=== PATIENT | male | born 1950 | race Caucasian/White ===

== ENCOUNTER 2024-09-02 14:07 | Inpatient (IN) | payer MEDICARE, OTHER, SELFPAY ==
[2024-08-31 16:45] VITALS: BP 119/61
--- NOTE | 2024-08-31 16:55 | ED.GENMED ---
ED Provider Triage
<Sylvia Vanegas PA-C - Last Filed: 08/31/24 16:56>
-
Patient seen by provider in Triage?: Seen in Triage
Attestation: A medical screening examination has been initiated by a qualified medical provider. Based on the assessment performed at this time, it has been determined that an emergent medical condition may exist and the patient has been informed
that further medical evaluation and possible additional diagnostic testing may be needed.
HPI: 74yoM here for weakness. Had a fall last night but unable to get off the floor. Slept on floor for 10 hours. Second fall today. EMS called twice today. Hx of Parkinson's.
GENERAL: Alert , in no apparent distress
EYE: No visual abnormalities.
NECK: Trachea midline
ENT: No visible abnormalities.
LUNGS: No acute respiratory distress
NEUROLOGICAL: Alert and oriented
SKIN: Skin intact. No visible changes.
MUSCULOSKELETAL: Moving extremities normally
PSYCH: Normal and appropriate interaction.
This is a medical evaluation conducted in person to initiate diagnostic evaluation and provide initial therapeutics. Please see further documentation by the treating clinician.
CBC, CMP, CK, and UA ordered.
History of Present Illness
<Sylvia Vanegas PA-C - Last Filed: 08/31/24 16:56>
General
Chief Complaint: Weakness
Time Seen by Provider: 09/01/24 00:53
<Ren Enrique MD, Resident - Last Filed: 09/01/24 05:35>
General
Source: patient and spouse
Nursing documentation reviewed up to this point in time: agreed with
Travel History
Have you traveled to any high risk areas for coronavirus over the past 14 days?: No
Have you had any contact with someone who has COVID-19?: No
History of Present Illness
History of Present Illness:
74-year-old male with PMH of Parkinson's disease, anxiety and depression who presented to the emergency department via EMS with 1 week history of weakness which has worsened over the past 24 hours. Patient was seen with spouse at bedside who
provided supplemental information. Patient's spouse reports that patient slid out of his bed last night and had to sleep on a carpeted floor because he could not get up to go back to his bed even with the help. This morning, patient called the
police to help him back to bed but slid back out again prior to being brought to the emergency department. He reports compliance with his carbidopa-levodopa, however continues to shake vigorously. Patient denies recent extraordinary physical
exertions, statin use, heatstroke. He also denies chest pain, shortness of breath, palpitations, fever or chills. Denies head trauma, denies history of seizures. Admits that he has not been drinking enough water due to fear of urinating, having
UTI.
Past History
<Ren Enrique MD, Resident - Last Filed: 09/01/24 05:35>
Past History
ED Past Medical History: Psychiatric (Parkinson's, anxiety, depression)
Social History
Tobacco: Non-smoker
Alcohol: None
Drug: None
Personal:
Living: with family
Review of Systems
<Ren Enrique MD, Resident - Last Filed: 09/01/24 05:35>
Review of Systems
All Other Systems: ROS reviewed and negative except as documented in HPI and ROS
Phy Exam
<Ren Enrique MD, Resident - Last Filed: 09/01/24 05:35>
Physical Exam
Physical Exam:
GENERAL: Alert and oriented x 3, NAD. Afebrile
HEAD: NC/AT
OROPHARYNX: no exudate or ulcers.
EYE: pupils equal and reactive extraocular muscles
NECK: Supple, no significant adenopathy.
CARDIAC: Regular rate and rhythm, systolic ejection murmur
LUNGS: Normal breath sounds,normal-no rhonchi. Not bronchospastic.
ABDOMEN: Soft, NT, ND, no peritoneal signs.
NEUROLOGICAL: Alert and oriented x 3. Severe intention tremors on right hand.
SKIN: Warm and dry, no rash or lesion, no discoloration, skin intact.
MUSCULOSKELETAL: Full range of motion of extremities.
LYMPHATIC:No lymph nodes on his neck or supraclavicular area.
PSYCH: Normal and appropriate interaction.
Neurological Exam
Neurological Exam: alert, oriented x3 and speech normal
Psychiatric Exam
Psychiatric Exam: anxious
Course
<Sylvia Vanegas PA-C - Last Filed: 08/31/24 16:56>
Orders/Labs/Results
Orders:
Orders
08/31/24 17:00
Complete Blood Count/With Diff Urgent
Comprehensive Metabolic Panel Urgent
Total CK [Creatine Phosphokinase] Urgent
08/31/24 17:33
Urinalysis Reflex To Culture Urgent
Date Specimen was Collected: 08/31/24
Time Specimen was Collected: 16:50
Urine Microscopic Reflex Cult Urgent
09/01/24 01:45
0.9% Sodium Chloride 1000 ml [Nss] 1,000 ml IV BOLUS
09/01/24 02:12
CT Head W/o Iv Contrast Urgent
Comment:
Reason For Exam: Frequent falls, weakness
09/01/24 02:22
COVID-19 Antigen Stat
Source: Nasal Swab
Influenza A+B Rapid Molecular Urgent
MATTHIEU Source: Nasal Swab
Specimen Description:
09/01/24 02:48
Carbidopa/Levodopa Cr [Sinemet Cr 25-100 (Extended Release)] 1 tablet PO NOW STA
09/01/24 04:23
ECG [Electrocardiogram (*1)] Stat
Reason for Study: Fatigue / Weakness
09/01/24 04:30
Admit/Transfer Patient As Directed
Co-Sign Provider:
Level of Care: Observation services
Assign to:: Medical/Surgical
Physician / Group: hospitalist
Diagnosis: rhabdomyolysis
PRN Pain Medication Management As Directed
May give lesser potent ordered pain med per pt: Yes
preference::
Protocol:: Medication orders for pain may be administered in a
manner that supports deferring to patient preference
when the pt is:
- Requesting an ordered lesser potent pain medication.
Least to most potent pain medications are defined
as: acetaminophen < NSAID < tramadol < opioids
(morphine, oxycodone, hydromorphone).
- Requesting a lesser dose of the same medication IF
ORDERED.
- Requesting a less intrusive route of administration
if both routes are prescribed by the provider (PO <
IV).
09/01/24 04:31
Code Status As Directed
Resuscitation Status: Full Code
09/01/24 05:45
0.9% Sodium Chloride 1000 ml [Nss] 1,000 ml IV 100 mls/hr
Acetaminophen [Tylenol] 650 mg PO Q4HPRN PRN
Bisacodyl [Dulcolax] 10 mg RECTAL [id number] PRN
Docusate W/Senna [Senokot-S] 1 tablet PO BIDPRN PRN
Ondansetron Injectable [Zofran] 4 mg IV Q6HPRN PRN
Polyethylene Glycol Powder [Miralax] 17 grams PO DAILYPRN PRN
09/01/24 05:45
Activity As Directed
Activity Level: With Assistance
Orthostatic Vital Signs As Directed
Orthostatic VS Frequency: Daily
Vital Signs As Directed
Frequency: Per unit guidelines
Pt Eval And Treat Routine
Activity Level: With Assistance
DX Deep Vein Thrombosis Video Routine
09/01/24 Breakfast
Regular
At Your Request: Limited Participation
09/01/24 06:35
Basic Metabolic Panel IN AM
Creatine Phosphokinase IN AM
Magnesium IN AM
TSH IN AM
09/01/24 08:00
Carbidopa/Levodopa [Sinemet 25-100] 2 tablet PO TID
Hydrochlorothiazide [Oretic] 12.5 mg PO DAILY
Sertraline HCl [Zoloft] 25 mg PO DAILY
09/01/24 18:00
Enoxaparin Sodium [Lovenox] 40 mg SC QPM
09/01/24 22:00
Atorvastatin [Lipitor] 10 mg PO HS
Carbidopa/Levodopa Cr [Sinemet Cr 25-100 (Extended Release)] 1 tablet PO HS
Donepezil HCl [Aricept] 10 mg PO HS
Abnormal Lab Results
08/31/24 08/31/24
17:00 17:33
RBC 4.32 L 10^6/uL
(4.70-6.10)
MCH 31.7 H pg
(27.0-31.0)
MPV 11.0 H fL
(7.4-10.4)
Absolute Lymphs (auto) 0.8 L 10^3/uL
(1.2-3.4)
Absolute Monos (auto) 1.0 H 10^3/uL
(0.1-0.6)
Neutrophils % 76.8 H %
(42.2-75.2)
Lymphocytes % 9.9 L %
(20.5-51.1)
Monocytes % 12.0 H %
(1.7-9.3)
BUN 25 H mg/dl
(9-20)
Total Bilirubin 1.7 H mg/dl
(0.2-1.3)
AST 80 H U/L
(17-59)
Creatine Kinase 3440 H U/L
(55-170)
Urine Ketones 1+ A
(Negative)
Urine Bacteria (Reflex) Few A
(Negative)
Urine Albumin (Reflex) 1+ A
(Neg - Trace)
08/31/24 17:00
08/31/24 17:00
Vital Signs
Initial and Last Documented VS:
Initial Vital Signs
Temp Pulse Resp BP Pulse Ox
97.9 F 82 20 119/61 97
08/31/24 16:45 08/31/24 16:45 08/31/24 16:45 08/31/24 16:45 08/31/24 16:45
Last Documented Vital Signs
Temp Pulse Resp BP Pulse Ox
97.6 F 195 21 117/46 97
09/01/24 00:46 09/01/24 06:15 09/01/24 06:15 09/01/24 06:00 09/01/24 06:00
<Ren Dank Enrique MD, Resident - Last Filed: 09/01/24 05:35>
Orders/Labs/Results
Orders:
Orders
08/31/24 17:00
Complete Blood Count/With Diff Urgent
Comprehensive Metabolic Panel Urgent
Total CK [Creatine Phosphokinase] Urgent
08/31/24 17:33
Urinalysis Reflex To Culture Urgent
Date Specimen was Collected: 08/31/24
Time Specimen was Collected: 16:50
Urine Microscopic Reflex Cult Urgent
09/01/24 01:45
0.9% Sodium Chloride 1000 ml [Nss] 1,000 ml IV BOLUS
09/01/24 02:12
CT Head W/o Iv Contrast Urgent
Comment:
Reason For Exam: Frequent falls, weakness
09/01/24 02:22
COVID-19 Antigen Stat
Source: Nasal Swab
Influenza A+B Rapid Molecular Urgent
MATTHIEU Source: Nasal Swab
Specimen Description:
09/01/24 02:48
Carbidopa/Levodopa Cr [Sinemet Cr 25-100 (Extended Release)] 1 tablet PO NOW STA
09/01/24 04:23
ECG [Electrocardiogram (*1)] Stat
Reason for Study: Fatigue / Weakness
09/01/24 04:30
Admit/Transfer Patient As Directed
Co-Sign Provider:
Level of Care: Observation services
Assign to:: Medical/Surgical
Physician / Group: hospitalist
Diagnosis: rhabdomyolysis
PRN Pain Medication Management As Directed
May give lesser potent ordered pain med per pt: Yes
preference::
Protocol:: Medication orders for pain may be administered in a
manner that supports deferring to patient preference
when the pt is:
- Requesting an ordered lesser potent pain medication.
Least to most potent pain medications are defined
as: acetaminophen < NSAID < tramadol < opioids
(morphine, oxycodone, hydromorphone).
- Requesting a lesser dose of the same medication IF
ORDERED.
- Requesting a less intrusive route of administration
if both routes are prescribed by the provider (PO <
IV).
09/01/24 04:31
Code Status As Directed
Resuscitation Status: Full Code
09/01/24 05:45
0.9% Sodium Chloride 1000 ml [Nss] 1,000 ml IV 100 mls/hr
Acetaminophen [Tylenol] 650 mg PO Q4HPRN PRN
Bisacodyl [Dulcolax] 10 mg RECTAL [id number] PRN
Docusate W/Senna [Senokot-S] 1 tablet PO BIDPRN PRN
Ondansetron Injectable [Zofran] 4 mg IV Q6HPRN PRN
Polyethylene Glycol Powder [Miralax] 17 grams PO DAILYPRN PRN
09/01/24 05:45
Activity As Directed
Activity Level: With Assistance
Orthostatic Vital Signs As Directed
Orthostatic VS Frequency: Daily
Vital Signs As Directed
Frequency: Per unit guidelines
Pt Eval And Treat Routine
Activity Level: With Assistance
DX Deep Vein Thrombosis Video Routine
09/01/24 Breakfast
Regular
At Your Request: Limited Participation
09/01/24 06:35
Basic Metabolic Panel IN AM
Creatine Phosphokinase IN AM
Magnesium IN AM
TSH IN AM
09/01/24 08:00
Carbidopa/Levodopa [Sinemet 25-100] 2 tablet PO TID
Hydrochlorothiazide [Oretic] 12.5 mg PO DAILY
Sertraline HCl [Zoloft] 25 mg PO DAILY
09/01/24 18:00
Enoxaparin Sodium [Lovenox] 40 mg SC QPM
09/01/24 22:00
Atorvastatin [Lipitor] 10 mg PO HS
Carbidopa/Levodopa Cr [Sinemet Cr 25-100 (Extended Release)] 1 tablet PO HS
Donepezil HCl [Aricept] 10 mg PO HS
Abnormal Lab Results
08/31/24 08/31/24
17:00 17:33
RBC 4.32 L 10^6/uL
(4.70-6.10)
MCH 31.7 H pg
(27.0-31.0)
MPV 11.0 H fL
(7.4-10.4)
Absolute Lymphs (auto) 0.8 L 10^3/uL
(1.2-3.4)
Absolute Monos (auto) 1.0 H 10^3/uL
(0.1-0.6)
Neutrophils % 76.8 H %
(42.2-75.2)
Lymphocytes % 9.9 L %
(20.5-51.1)
Monocytes % 12.0 H %
(1.7-9.3)
BUN 25 H mg/dl
(9-20)
Total Bilirubin 1.7 H mg/dl
(0.2-1.3)
AST 80 H U/L
(17-59)
Creatine Kinase 3440 H U/L
(55-170)
Urine Ketones 1+ A
(Negative)
Urine Bacteria (Reflex) Few A
(Negative)
Urine Albumin (Reflex) 1+ A
(Neg - Trace)
08/31/24 17:00
08/31/24 17:00
Vital Signs
Initial and Last Documented VS:
Initial Vital Signs
Temp Pulse Resp BP Pulse Ox
97.9 F 82 20 119/61 97
08/31/24 16:45 08/31/24 16:45 08/31/24 16:45 08/31/24 16:45 08/31/24 16:45
Last Documented Vital Signs
Temp Pulse Resp BP Pulse Ox
97.6 F 195 21 117/46 97
09/01/24 00:46 09/01/24 06:15 09/01/24 06:15 09/01/24 06:00 09/01/24 06:00
Coltlt;Myrtle Jolly, DO - Last Filed: 09/01/24 08:25>
Orders/Labs/Results
Orders:
Orders
08/31/24 17:00
Complete Blood Count/With Diff Urgent
Comprehensive Metabolic Panel Urgent
Total CK [Creatine Phosphokinase] Urgent
08/31/24 17:33
Urinalysis Reflex To Culture Urgent
Date Specimen was Collected: 08/31/24
Time Specimen was Collected: 16:50
Urine Microscopic Reflex Cult Urgent
09/01/24 01:45
0.9% Sodium Chloride 1000 ml [Nss] 1,000 ml IV BOLUS
09/01/24 02:12
CT Head W/o Iv Contrast Urgent
Comment:
Reason For Exam: Frequent falls, weakness
09/01/24 02:22
COVID-19 Antigen Stat
Source: Nasal Swab
Influenza A+B Rapid Molecular Urgent
MATTHIEU Source: Nasal Swab
Specimen Description:
09/01/24 02:48
Carbidopa/Levodopa Cr [Sinemet Cr 25-100 (Extended Release)] 1 tablet PO NOW STA
09/01/24 04:23
ECG [Electrocardiogram (*1)] Stat
Reason for Study: Fatigue / Weakness
09/01/24 04:30
Admit/Transfer Patient As Directed
Co-Sign Provider:
Level of Care: Observation services
Assign to:: Medical/Surgical
Physician / Group: hospitalist
Diagnosis: rhabdomyolysis
PRN Pain Medication Management As Directed
May give lesser potent ordered pain med per pt: Yes
preference::
Protocol:: Medication orders for pain may be administered in a
manner that supports deferring to patient preference
when the pt is:
- Requesting an ordered lesser potent pain medication.
Least to most potent pain medications are defined
as: acetaminophen < NSAID < tramadol < opioids
(morphine, oxycodone, hydromorphone).
- Requesting a lesser dose of the same medication IF
ORDERED.
- Requesting a less intrusive route of administration
if both routes are prescribed by the provider (PO <
IV).
09/01/24 04:31
Code Status As Directed
Resuscitation Status: Full Code
09/01/24 05:45
0.9% Sodium Chloride 1000 ml [Nss] 1,000 ml IV 100 mls/hr
Acetaminophen [Tylenol] 650 mg PO Q4HPRN PRN
Bisacodyl [Dulcolax] 10 mg RECTAL [id number] PRN
Docusate W/Senna [Senokot-S] 1 tablet PO BIDPRN PRN
Ondansetron Injectable [Zofran] 4 mg IV Q6HPRN PRN
Polyethylene Glycol Powder [Miralax] 17 grams PO DAILYPRN PRN
09/01/24 05:45
Activity As Directed
Activity Level: With Assistance
Orthostatic Vital Signs As Directed
Orthostatic VS Frequency: Daily
Vital Signs As Directed
Frequency: Per unit guidelines
Pt Eval And Treat Routine
Activity Level: With Assistance
DX Deep Vein Thrombosis Video Routine
09/01/24 Breakfast
Regular
At Your Request: Limited Participation
09/01/24 06:35
Basic Metabolic Panel IN AM
Creatine Phosphokinase IN AM
Magnesium IN AM
TSH IN AM
09/01/24 08:00
Carbidopa/Levodopa [Sinemet 25-100] 2 tablet PO TID
Hydrochlorothiazide [Oretic] 12.5 mg PO DAILY
Sertraline HCl [Zoloft] 25 mg PO DAILY
09/01/24 18:00
Enoxaparin Sodium [Lovenox] 40 mg SC QPM
09/01/24 22:00
Atorvastatin [Lipitor] 10 mg PO HS
Carbidopa/Levodopa Cr [Sinemet Cr 25-100 (Extended Release)] 1 tablet PO HS
Donepezil HCl [Aricept] 10 mg PO HS
Abnormal Lab Results
08/31/24 08/31/24
17:00 17:33
RBC 4.32 L 10^6/uL
(4.70-6.10)
MCH 31.7 H pg
(27.0-31.0)
MPV 11.0 H fL
(7.4-10.4)
Absolute Lymphs (auto) 0.8 L 10^3/uL
(1.2-3.4)
Absolute Monos (auto) 1.0 H 10^3/uL
(0.1-0.6)
Neutrophils % 76.8 H %
(42.2-75.2)
Lymphocytes % 9.9 L %
(20.5-51.1)
Monocytes % 12.0 H %
(1.7-9.3)
BUN 25 H mg/dl
(9-20)
Total Bilirubin 1.7 H mg/dl
(0.2-1.3)
AST 80 H U/L
(17-59)
Creatine Kinase 3440 H U/L
(55-170)
Urine Ketones 1+ A
(Negative)
Urine Bacteria (Reflex) Few A
(Negative)
Urine Albumin (Reflex) 1+ A
(Neg - Trace)
08/31/24 17:00
08/31/24 17:00
Vital Signs
Initial and Last Documented VS:
Initial Vital Signs
Temp Pulse Resp BP Pulse Ox
97.9 F 82 20 119/61 97
08/31/24 16:45 08/31/24 16:45 08/31/24 16:45 08/31/24 16:45 08/31/24 16:45
Last Documented Vital Signs
Temp Pulse Resp BP Pulse Ox
97.6 F 195 21 117/46 97
09/01/24 00:46 09/01/24 06:15 09/01/24 06:15 09/01/24 06:00 09/01/24 06:00
<Renchristiano Enrique MD, Resident - Last Filed: 09/01/24 05:35>
MDM/Problems Addressed
MDM/Problems Addressed:
74-year-old male with PMH of Parkinson's disease, anxiety, depression who presented to the emergency department with 1 week history of progressive weakness and slipping out of bed this morning. While in the ED, he is hemodynamically stable. Labs
was remarkable for creatinine kinase 3440, BUN 25 creatinine 0.7. He denies head trauma, cold, cough, nasal congestion. Differential diagnoses include rhabdomyolysis, subacute stroke, worsening Parkinson's disease. Given his dehydration, will
give a bolus of IV fluid and get a noncontrast CT to evaluate for stroke. Patient will most likely be admitted for frequent falls, and rhabdomyolysis.
Chronic conditions affecting care: Neurological disorder
<Ren Enrique MD, Resident - Last Filed: 09/01/24 05:35>
*EKG
Interpreted by ED Provider?: Yes
EKG Intrepretation Date: 09/01/24
EKG Intrepretation Time: 04:23
Interpretation: abnormal
Comparison EKG: no comparison EKG present
Heart Rate: 63
Rate: normal
Rhythm: sinus
[place]: left axis deviation
Interval: first degree heart block
QRS Pattern: normal QRS
Ischemia: no ischemia
*Critical Care Note
Total Time (30-74mins, 75-104mins- exclusive of procedures): Not Applicable
<Ren Enrique MD, Resident - Last Filed: 09/01/24 05:35>
Update Note
Update Note:
Noncontrast CT head reports no acute intracranial abnormalities. However given recent falls, rhabdomyolysis, patient will be admitted to hospitalist service.
ED Attending Note
<Sylvia Vanegas PA-C - Last Filed: 08/31/24 16:56>
-
Portions of this chart may have been created with voice recognition software.� Occasional wrong word or��sound alike� substitutions may have occurred due to the inherent limitations of voice recognition software.
<Myrtle Jolly DO - Last Filed: 09/01/24 08:25>
ED Attending Note
Patient seen and examined by attending physician: Yes
I performed a history and physical exam of patient and discussed management with resident, I reviewed resident's note and agree with documented findings and plan of care.: Yes
ED Attending Note:
This is a 74-year-old gentleman who has history of Parkinson's disease, hyperlipidemia, depression who resides at home with his .
He had been attending twice weekly physical therapy for quite some time for maintenance but admits to progressive weakness over the past week, inability to attend physical therapy visits this week and he has suffered 2 falls/falling out of bed over
24 hours ago and proceeded to lie on the floor throughout the night as was unable to help him up to stand. 911 called yesterday morning for lift assist and he was placed back in bed but then slid out of bed again tonight requiring EMS
assistance again.
He denies fever nor chills, no coughing or shortness of breath.
Somewhat poor appetite over the past week but no nausea no vomiting, no diarrhea or constipation. He denies pain.
No history of similar episodes in the past.
No recent change in medications but he admits that he has not taken his medicines throughout the day today.
74-year-old gentleman appears his stated age, bright and alert, pleasant, mildly intermittently anxious otherwise in no acute distress. is accompanying.
HEENT: The head is normocephalic, atraumatic.
Neuro: Moderate cogwheel rigidity of extremities with intermittent resting tremor of right upper extremity.
Concern for subacute stroke, electrolyte abnormality, dehydration, exacerbation of Parkinson's disease with acute exacerbation of ambulatory dysfunction.
Labs remarkable for elevated CPK of 3400 consistent with rhabdomyolysis. I suspect related to patient lying for extended hours on the floor.
Due to recurrent falls, acute rhabdomyolysis, progressive weakness he will require acute hospitalization, IV fluid resuscitation.
Will check CT of the head.
Discharge Plan
Departure
Patient Disposition: Admit
Date of Disposition: 09/01/24
Time of Disposition: 03:03
Admit to: Med/Surg
Admit to doctor: Josie Harris
Presentation/result/management discussed w/ accepting MD/DO: Hospitalist
Patient with high blood pressure during this ER visit?: Yes
Condition: Fair
Covid-19: Not Applicable
Discharge Problem:
Weakness generalized, Rhabdomyolysis, JEROD (acute kidney injury), Falls frequently
Interventions
Interventions:
*Risk Screen - Suicide Last Done: 08/31/24 16:45
*General Assessment Last Done: 09/01/24 00:47
*Neglect/Abuse Screening Last Done: 08/31/24 16:45
ED- Fall Risk Assessment Last Done: 09/01/24 00:47
*ED COVID-19 Vaccine History Last Done: 09/01/24 00:46
ED- Cardiac Assessment Last Done: 09/01/24 00:47
ED- Neurological Assessment Last Done: 09/01/24 00:47
ED- Pulmonary Assessment Last Done: 09/01/24 00:47
[2024-08-31 17:14] LABS: % Basophils 0.4 % (0-2); % Eosinophils 0.5 % (0-6); % Immature Granulocytes 0.4 % (0-0.5); % Lymphocytes 9.9 % (20.5-51.1); % Neutrophils 76.8 % (42.2-75.2); Absolute Lymphocytes 0.8 10^3/uL (1.2-3.4); Absolute Neutrophils 6.2 10^3/uL (1.4-6.5); Hematocrit 39.9 % (39.0-52.0); Hemoglobin 13.7 g/dL (13.0-18.0); Mean Corp Hgb Conc. 34.3 g/dL (33.0-37.0); Mean Corpuscular Hgb 31.7 pg (27.0-31.0); Mean Corpuscular Volume 92.4 fL (80.0-94.0); Nucleated Red Blood Cells % 0 % (-); Platelet Count 183 10^3/uL (130-400); Red Blood Cell Count 4.32 10^6/uL (4.70-6.10); White Blood Cell Count 8.1 10^3/uL (4.8-10.8)
[2024-08-31 17:28] LABS: ALT (SGPT) < 10 U/L (0-50); AST (SGOT) 80 U/L (17-59); Albumin 4.6 g/dl (3.5-5.0); Alkaline Phosphatase 77 U/L (38-126); Blood Urea Nitrogen 25 mg/dl (9-20); Calcium 9.3 mg/dl (8.4-10.2); Carbon Dioxide 25 mmol/L (22-30); Chloride 103 mmol/L (98-107); Glucose 95 mg/dl (70-99); Sodium 137 mmol/L (135-145); Total Bilirubin 1.7 mg/dl (0.2-1.3); Total Protein 7.5 g/dl (6.3-8.2); eGFR > 60.00
[2024-08-31 17:35] LABS: Creatine Phosphokinase 3440 U/L (55-170)
[2024-08-31 17:44] LABS: Urine Albumin 1+ (Neg - Trace); Urine Bilirubin Negative (Negative); Urine Character Clear (Clear); Urine Color Yellow; Urine Glucose Negative (Negative); Urine Ketone 1+ (Negative); Urine Leukocyte Negative (Negative); Urine Nitrite Negative (Negative); Urine Occult Blood Negative (Negative); Urine Urobilinogen Negative (Neg - 1+)
[2024-08-31 18:18] LABS: Urine Mucus Moderate; Urine Squamous Cell 0-2 /LPF (Few)
[2024-08-31 18:19] LABS: Urine Bacteria Few (Negative); Urine Red Blood Cell 0-2 /HPF (0-2); Urine White Cell 0-2 /HPF (0-5)
[2024-09-01] VITALS (16 sets, daily range): BP systolic 100–171; BP diastolic 44–90; PULSE 69; BMI 29.4; BMI 26.6
[2024-09-01] MEDS: NSS 1000 IV ×3 (02:07→17:12)
[2024-09-01 02:47] LABS: COVID-19 Antigen Negative (Negative)
[2024-09-01] MEDS: SINEMET CR 25-100 (EXTENDED RELEASE) 1 TABLET PO ×2 (02:59→21:01)
--- NOTE | 2024-09-01 04:20 | HPS.HSE ---
Family Physician
-
Family Physician: Misha Riddle
Chief Complaint
-
Weakness
History of Present Illness
This is a 74-year-old with past medical history significant for oral Parkinson disease, hypertension, hyperlipidemia and some dementia who presents to the emergency department after slipping off of his bed twice in the last 24 hours.
At the time of my interview patient was sleeping without arousable and able to give some history. Stated that he was trying to get out of the bed probably to use the bathroom when he felt entangled and sleep of the bed landing on the floor. He
felt too weak to get himself off and has been on the floor for several hours. He stated to me about 3 hours. More than was indicated up to 12 hours on the floor. He does live with his spouse at home who eventually called EMS who came to see the
patient and brought him to the hospital.
Patient said his had a similar episode in the past and he feels it is due to being entangled in the bed. He denies 1 episode since weather conditions. Patient already uses a rollator for ambulation. He denies any lightheadedness or dizziness. He
denies any vision changes. He denies any facial droop, numbness or tingling. He denies any focal weaknesses. Patient denies any recent episodes of diarrhea. He denies melena or hematochezia. He denies any chest pain palpitations or shortness of
breath.
He denies any acute changes in medications. He reports mild urinary hesitancy and does report slightly increased frequency with oral intake. Denies dysuria. He denies any known sick contacts.
In the emergency department he was hemodynamically stable and afebrile with a blood pressure of 144/50 with a pulse of 71. CT of the head shows no acute intracranial process with official read pending. CBC was unremarkable. Electrolytes
BUN/creatinine were also in the normal range. CPK was elevated at 3400. ECG non-ischemic
Medical History
Past Medical History
Past Medical History: Reports Dementia, HTN, Hypercholesterolemia and Other (Parkinson disease)
Past Surgical History: Reports Other
Social History
Tobacco: Smoker
Alcohol: None
Drug: None
Personal:
Living: With Family
Employment: Retired
Family History
Family History: Not pertinent
Allergies / Home Medications
Allergies reflects when Allergies were last updated in [employer].
Home Medications with original date entered in [employer]
Allergy/Medication List:
Allergies
Allergy/AdvReac Type Severity Reaction Status Date / Time
No Known Allergies Allergy Verified 08/31/24 16:50
Home Medications
carbidopa 25 mg-levodopa 100 mg tablet (Sinemet) 2 tab PO TID 09/01/24
carbidopa ER 25 mg-levodopa 100 mg tablet,extended release 1 tab PO HS 09/01/24
donepezil 10 mg tablet 10 mg PO HS 09/01/24
hydrochlorothiazide 12.5 mg tablet 12.5 mg PO DAILY 09/01/24
sertraline 25 mg tablet 25 mg PO DAILY 09/01/24
simvastatin 20 mg tablet 20 mg PO HS 09/01/24
Review of Systems
-
History Source: Patient and Physician
Constitutional: Reports No Symptoms
EENT: Reports No Symptoms
Respiratory: Reports No Symptoms
Cardiac: Reports No Symptoms
Abdomen/GI: Reports No Symptoms
: Reports No Symptoms
Musculoskeletal: Reports No Symptoms
Skin: Reports No Symptoms
Neurological: Reports Weakness and Other (tremors)
Endocrine: Reports No Symptoms
Hematologic/Lymphatic: Reports No Symptoms
Psych: Reports No Symptoms
Physical Exam
Vital Signs
Vital Signs
Temp Pulse Resp BP Pulse Ox
97.6 F 71 20 144/53 93
09/01/24 00:46 09/01/24 00:46 08/31/24 16:45 09/01/24 03:16 09/01/24 04:00
Physical Exam
General: Well Developed, Well Nourished, No Apparent Distress and Comfortable
HEENT: NormoCephalic, Anicteric, Moist mucous membranes, Atraumatic, PERRLA and No Ptosis
Respiratory: Clear
Cardiac: S1/S2 and Regular Rhythm
Breast: Deferred by me
GI: Non Tender, Non Distended and Normal Bowel Sounds
Rectal: Deferred by Provider
Genito-urinary: Clear Urine
Musculoskeletal: No Clubbing, No Cyanosis and No Edema
Skin: Warm
Neuro: AO x 3 and Nonfocal/grossly intact
Hematologic/Lymphatic: No Lymphadenopathy
Psych: Calm
Laboratory Results
-
08/31/24 17:00
08/31/24 17:00
Laboratory Results
Total Bilirubin 1.7 mg/dl (0.2-1.3) H 08/31/24 17:00
AST 80 U/L (17-59) H 08/31/24 17:00
ALT < 10 U/L (0-50) 08/31/24 17:00
Alkaline Phosphatase 77 U/L (38-126) 08/31/24 17:00
Data Reviewed
-
CT Scan: Report Reviewed by me
Medical Tests (Nuc Med, Echo, EKG etc): Image Personally Visualized and interpreted
Lab Data: Labs Reviewed by me
Old Records: Reviewed
Impression/Plan
-
IMPRESSION:
74 y.o male with h/o parkinson disease and ambulatory difficulties coming in to ED after a fall from bed at home while trying to transfer but unable to get up due to weakness. ED w/u so far shows no acute abnormality that would explain the
weakness. Found to have mild-moderate rhabdo with normal creatinine.
PLAN:
1. Weakness - Generalized with tremors. Likely chronic but now with falls. Negative COVID. U/A is normal
- admit to med/surg
- check tsh
- check orthostatics
- IV fluids for now
- PT evaluation
- continue patietn own sinamet and donepezil for now
2. Rhabdo - Mild with preserved renal function
- Hydration with NS at 100 ml/hr and trend until cpk decreasing
DVT PPX - lovenox sq
Code status - full code
[2024-09-01 07:17] LABS: Blood Urea Nitrogen 24 mg/dl (9-20); Calcium 8.9 mg/dl (8.4-10.2); Carbon Dioxide 24 mmol/L (22-30); Chloride 105 mmol/L (98-107); Estimated Creatinine Clearance 90 ml/min; Glucose 91 mg/dl (70-99); Magnesium 2.1 mg/dl (1.6-2.3); Potassium 4.3 mmol/L (3.5-5.1); Sodium 137 mmol/L (135-145); eGFR > 60.00
[2024-09-01 07:28] LABS: Creatine Phosphokinase 3017 U/L (55-170)
[2024-09-01 07:42] LABS: TSH 2.69 uIU/ml (0.47-4.68)
--- NOTE | 2024-09-01 08:32 | W.PN.HOSP.TC ---
Today's Communication/Plan
-
see bold
Assessment / Plan
Assessment / Plan
HPI: 74-year-old with past medical history significant for oral Parkinson disease, hypertension, hyperlipidemia and some dementia who presents to the emergency department after slipping off of his bed twice in the last 24 hours.
At the time of my interview patient was sleeping without arousable and able to give some history. Stated that he was trying to get out of the bed probably to use the bathroom when he felt entangled and sleep of the bed landing on the floor. He
felt too weak to get himself off and has been on the floor for several hours. He stated to me about 3 hours. More than was indicated up to 12 hours on the floor.
# Acute rhabdomyolysis
Continue NS IV fluids at 100 cc/h, patient has noticeable lower extremity edema, unable to increase at this point
Trend CK
#Acute on chronic bilateral lower extremity weakness
#Mechanical falls
PT recommends short-term rehab, consult OT
Lives with
#Bilateral lower extremity edema
Check venous Dopplers, add Tubigrip's, continue hydrochlorothiazide 12.5 mg daily
#Parkinson's disease
Continue Sinemet, Aricept
#Anxiety/depression
Continue SSRI
#Hyperlipidemia
Continue statin
DVT prophylaxis�subcu Lovenox
Full code
Physical Exam
General: No acute distress
HEENT: Normocephalic, Atraumatic, EOMI, MMM
Respiratory: Clear to Auscultation bilaterally
Cardiac: Normal S1/S2, Regular Rate and Rhythm
GI: Soft, Nontender, Nondistended, Normal Bowel Sounds
Extremities: No Clubbing, Cyanosis
2+bilateral lower extremity edema
Neuro: Resting tremor noted
Psych: Calm, Cooperative
Derm: No Visible lesions
Anticipated Discharge: 24 - 48 hours
Subjective/Interval History
-
Date of Service: September 01, 2024
Patient reports bilateral lower extremity weakness. No fever, no vomiting.
Objective Data
-
Labs:
Laboratory Results
09/01/24
06:35
Sodium 137
Potassium 4.3
Chloride 105
Carbon Dioxide 24
BUN 24 H
Creatinine 0.7
Glucose 91
Calcium 8.9
Vital Signs:
Vital Signs
Temp Pulse Resp BP Pulse Ox
97.6 F 195 21 117/46 97
09/01/24 00:46 09/01/24 06:15 09/01/24 06:15 09/01/24 06:00 09/01/24 06:00
[2024-09-01] MEDS: SINEMET 25-100 2 TABLET PO ×3 (08:39→21:00)
[2024-09-01] MEDS: ORETIC 12.5 MG PO (08:39)
[2024-09-01] MEDS: ZOLOFT 25 MG PO (08:39)
--- NOTE | 2024-09-01 13:00 | PHANOTE ---
Addendum entered by Kisha Thomas 09/01/24 15:30:
spoke to at bedside, she does not know any doses or strengths and will bring a list Tuesday
Original Note:
patient cannot give med rec; states that his takes care of his medications; called her at 1200 and 1300, no answer, no vm
[2024-09-01] MEDS: LOVENOX 40 MG SC (17:13)
[2024-09-01] MEDS: LIPITOR 10 MG PO (20:50)
[2024-09-01] MEDS: ARICEPT 10 MG PO (20:51)
[2024-09-01] MEDS: DESENEX/MITRAZOL/ZEASORB 1 APPLIC TOPICAL (20:53)
[2024-09-02] MEDS: NSS 1000 IV ×2 (03:37→13:53)
[2024-09-02 07:05] VITALS: BP 152/73
[2024-09-02] MEDS: ORETIC 12.5 MG PO (07:41)
[2024-09-02] MEDS: ZOLOFT 25 MG PO (07:41)
[2024-09-02] MEDS: SINEMET 25-100 2 TABLET PO ×3 (07:41→22:00)
[2024-09-02] MEDS: DESENEX/MITRAZOL/ZEASORB 1 APPLIC TOPICAL ×2 (07:42→21:34)
[2024-09-02 07:53] LABS: Creatine Phosphokinase 1048 U/L (55-170)
--- NOTE | 2024-09-02 08:25 | W.PN.HOSP.TC ---
Today's Communication/Plan
-
see bold
Assessment / Plan
Assessment / Plan
HPI: 74-year-old with past medical history significant for oral Parkinson disease, hypertension, hyperlipidemia and some dementia who presents to the emergency department after slipping off of his bed twice in the last 24 hours.
At the time of my interview patient was sleeping without arousable and able to give some history. Stated that he was trying to get out of the bed probably to use the bathroom when he felt entangled and sleep of the bed landing on the floor. He
felt too weak to get himself off and has been on the floor for several hours. He stated to me about 3 hours. More than was indicated up to 12 hours on the floor.
# Acute rhabdomyolysis
Continue NS IV fluids at 100 cc/h, patient has noticeable lower extremity edema, unable to give higher rate
CK 1048 today, was 3017 yesterday, was 3440 upon admission
Trend CK
#Acute on chronic bilateral lower extremity weakness
#Mechanical falls
PT recommends short-term rehab, consult OT -CM informed /
Lives with
#Bilateral lower extremity edema
Venous Dopplers negative for DVT, shows right Erickson's cyst
Continue Tubigrip's, continue hydrochlorothiazide 12.5 mg daily
#Parkinson's disease
Continue Sinemet
#Dementia
Continue Aricept
#Anxiety/depression
Continue SSRI
#Hyperlipidemia
Continue statin
DVT prophylaxis�subcu Lovenox
Full code
Updated on phone 09/02
Total time spent to see the patient on the floor, examine the patient, review data and lab results, discuss treatment plan with patient, nursing staff around 45 minutes.
Physical Exam
General: No acute distress
HEENT: Normocephalic, Atraumatic, EOMI, MMM
Respiratory: Clear to Auscultation bilaterally
Cardiac: Normal S1/S2, Regular Rate and Rhythm
GI: Soft, Nontender, Nondistended, Normal Bowel Sounds
Extremities: No Clubbing, Cyanosis
2+bilateral lower extremity edema
Neuro: Resting tremor noted
Anticipated Discharge: 24 - 48 hours
Subjective/Interval History
-
Date of Service: September 01, 2024
Patient continues to feel weak. No chest pain, no shortness of breath. No fever, no vomiting.
Objective Data
-
Labs:
Laboratory Results
09/01/24
06:35
Sodium 137
Potassium 4.3
Chloride 105
Carbon Dioxide 24
BUN 24 H
Creatinine 0.7
Glucose 91
Calcium 8.9
Vital Signs:
Vital Signs
Temp Pulse Resp BP Pulse Ox
97.7 F 57 15 100/57 93
09/01/24 13:27 09/01/24 10:30 09/01/24 10:30 09/01/24 10:00 09/01/24 07:00
[2024-09-02 15:45] VITALS: BP 157/72
[2024-09-02] MEDS: LOVENOX 40 MG SC (17:30)
[2024-09-02] MEDS: ARICEPT 10 MG PO (22:00)
[2024-09-02] MEDS: LIPITOR 10 MG PO (22:00)
[2024-09-02] MEDS: SINEMET CR 25-100 (EXTENDED RELEASE) 1 TABLET PO (22:00)
[2024-09-02] MEDS: SEROQUEL 25 MG PO (22:01)
[2024-09-02 23:59] VITALS: BP 129/63
[2024-09-03] MEDS: NSS 1000 IV (02:21)
[2024-09-03 07:50] VITALS: BP 146/72
[2024-09-03 07:58] LABS: Platelet Count 136 10^3/uL (130-400)
[2024-09-03 07:59] LABS: Hematocrit 34.7 % (39.0-52.0); Hemoglobin 11.8 g/dL (13.0-18.0); Mean Corpuscular Hgb 32.2 pg (27.0-31.0); Mean Corpuscular Volume 94.6 fL (80.0-94.0); Mean Platelet Volume 10.9 fL (7.4-10.4); Red Blood Cell Count 3.67 10^6/uL (4.70-6.10); White Blood Cell Count 7.1 10^3/uL (4.8-10.8)
[2024-09-03 08:25] LABS: Blood Urea Nitrogen 15 mg/dl (9-20); Carbon Dioxide 26 mmol/L (22-30); Chloride 104 mmol/L (98-107); Creatine Phosphokinase 455 U/L (55-170); Estimated Creatinine Clearance 90 ml/min; Glucose 113 mg/dl (70-99); Potassium 3.7 mmol/L (3.5-5.1); Sodium 138 mmol/L (135-145); eGFR > 60.00
[2024-09-03 09:28] VITALS: BP 149/68; PULSE 74; O2SAT 96
--- NOTE | 2024-09-03 09:35 | CM ---
Addendum entered by Magdalena Brown 09/03/24 14:19:
Patient here with med list and Medicare card. Patient med list provided to patient nurse and CM copied Medicare card given to admissions for update. CM requested to send referrals to [facility], [facility]. Patient indicated that she would be open to CM calling daughter if unable to reach her. CM will continue to follow for discharge planning needs.
Plan; SNF
Addendum entered by Magdalena Brown 09/03/24 13:30:
Patient , not here yet, she forgot the list of medications, sister here but indicated that she did not know which options they wanted.
Original Note:
CM attempted to reach the patient with out success. Patient stated that mother is having difficulty with her phone and has patient cell number [phone]. CM reviewed the SNF options and Medicare.gov. Patient daughter to review with parents
options and request Medicare insurance information. Patient daughter indicated that patient has a walker and a cane at home and has been using it. Patient PCP is Dr. Riddle and they use the [facility] on [address] in [place]. Patient daughter stated
that she called her mother and she will be bringing in the medical insurance information. CM will continue to follow for discharge planning needs.
Plan; SNF
[2024-09-03] MEDS: DESENEX/MITRAZOL/ZEASORB 1 APPLIC TOPICAL ×2 (09:36→20:43)
[2024-09-03] MEDS: ORETIC 12.5 MG PO (09:37)
[2024-09-03] MEDS: SINEMET 25-100 2 TABLET PO ×3 (09:37→21:07)
[2024-09-03] MEDS: ZOLOFT 25 MG PO (09:37)
[2024-09-03] MEDS: NSS IV ×2 (11:31→19:25)
[2024-09-03 15:35] VITALS: BP 139/60
--- NOTE | 2024-09-03 16:01 | W.PN.HOSP.TC ---
Today's Communication/Plan
-
discharge planning for snf rehab
medically clear
Assessment / Plan
Assessment / Plan
# Acute rhabdomyolysis - nontraumatic
patient was on floor for few hours
CPK ~ 3.4 k at admission
resolved with IVF
No JEROD, stop further IVF
#Acute on chronic bilateral lower extremity weakness
#Mechanical falls
PT recommends short-term rehab, consult OT -CM informed 09/02
Lives with
#Bilateral lower extremity edema
Venous Dopplers negative for DVT, shows right Erickson's cyst
Continue Tubigrip's, continue hydrochlorothiazide 12.5 mg daily
#Parkinson's disease
Continue Sinemet
#Dementia
Continue Aricept
#Anxiety/depression
Continue SSRI
#Hyperlipidemia
Continue statin
DVT prophylaxis�subcu Lovenox
Full code
Anticipated Discharge: Within 24 hours
Subjective/Interval History
-
Date of Service: September 03, 2024
Resting comfortably in bed
No reported issues overnight
Objective Data
-
Labs:
Laboratory Results
09/03/24
07:33
WBC 7.1
Hgb 11.8 L
Hct 34.7 L
Plt Count 136 D
Sodium 138
Potassium 3.7
Chloride 104
Carbon Dioxide 26
BUN 15
Creatinine 0.7
Glucose 113 H
Calcium 8.0 L
Vital Signs:
Vital Signs
Temp Pulse Resp BP Pulse Ox
97.9 F 70 24 146/72 96
09/03/24 07:50 09/03/24 07:50 09/03/24 07:50 09/03/24 07:50 09/03/24 07:50
I&O
09/02/24 09/03/24 09/04/24
06:59 06:59 06:59
Intake Total 1859 / 1859
Output Total 375 / 375
Balance 1485 / 1485
Review of Systems
-
Respiratory: Reports No Symptoms
Cardiac: Reports No Symptoms
Abdomen/GI: Reports No Symptoms
Physical Exam
-
General: No Apparent Distress and Comfortable
HEENT: Negative Oxygen
Respiratory: Clear to Auscultation
Cardiac: Regular Rhythm and S1/S2; Negative Murmur or Rub
GI: Soft, Nontender and Nondistended
Musculoskeletal: No Edema
Neuro: Awake, Alert, Oriented, No Motor Deficits and Nonfocal/Grossly Intact
Psych: Calm
[2024-09-03] MEDS: LOVENOX 40 MG SC (17:31)
[2024-09-03 19:41] LABS: Hepatitis C Antibody Negative (Negative)
[2024-09-03] MEDS: LIPITOR 10 MG PO (20:43)
[2024-09-03] MEDS: ARICEPT 10 MG PO (20:44)
[2024-09-03] MEDS: SEROQUEL 25 MG PO (20:44)
[2024-09-03] MEDS: SINEMET CR 25-100 (EXTENDED RELEASE) 1 TABLET PO (21:07)
[2024-09-03 23:58] VITALS: BP 138/71
[2024-09-04 07:50] VITALS: BP 124/58
[2024-09-04] MEDS: ORETIC 12.5 MG PO (09:16)
[2024-09-04] MEDS: SINEMET 25-100 2 TABLET PO ×3 (09:16→21:42)
[2024-09-04] MEDS: DESENEX/MITRAZOL/ZEASORB 1 APPLIC TOPICAL ×2 (09:16→21:41)
[2024-09-04] MEDS: ZOLOFT 25 MG PO (09:17)
[2024-09-04] MEDS: SENOKOT-S 1 TABLET PO (09:18)
[2024-09-04] MEDS: FLUSH (NSS) 1 FLUSH IV (09:18)
[2024-09-04 12:53] LABS: Blood Urea Nitrogen 19 mg/dl (9-20); Calcium 8.9 mg/dl (8.4-10.2); Carbon Dioxide 26 mmol/L (22-30); Chloride 100 mmol/L (98-107); Creatine Phosphokinase 189 U/L (55-170); Estimated Creatinine Clearance 90 ml/min; Glucose 143 mg/dl (70-99); Potassium 4.1 mmol/L (3.5-5.1); Sodium 135 mmol/L (135-145); eGFR > 60.00
--- NOTE | 2024-09-04 14:38 | W.PN.HOSP.TC ---
Today's Communication/Plan
-
d/c planning for rehab
Assessment / Plan
Assessment / Plan
# Acute rhabdomyolysis - nontraumatic
patient was on floor for few hours
CPK ~ 3.4 k at admission, trended down to 189
resolved with IVF
No JEROD, stop further IVF
#Acute on chronic bilateral lower extremity weakness
#Mechanical falls
PT recommends short-term rehab, consult OT -CM informed 09/02
Lives with
#Bilateral lower extremity edema
Venous Dopplers negative for DVT, shows right Erickson's cyst
Continue Tubigrip's, continue hydrochlorothiazide 12.5 mg daily
#Parkinson's disease
Continue Sinemet
#Dementia
Continue Aricept
#Anxiety/depression
Continue SSRI
#Hyperlipidemia
Continue statin
DVT prophylaxis�subcu Lovenox
Full code
Anticipated Discharge: Within 24 hours
Subjective/Interval History
-
Date of Service: September 04, 2024
Resting comfortably in bed
no reported problems overnigh
Objective Data
-
Labs:
Laboratory Results
09/04/24
11:59
Sodium 135
Potassium 4.1
Chloride 100
Carbon Dioxide 26
BUN 19
Creatinine 0.7
Glucose 143 H
Calcium 8.9
Vital Signs:
Vital Signs
Temp Pulse Resp BP Pulse Ox
99.3 F 78 20 124/58 96
09/04/24 07:50 09/04/24 07:50 09/04/24 07:50 09/04/24 07:50 09/04/24 07:50
I&O
09/03/24 09/04/24 09/05/24
06:59 06:59 06:59
Intake Total 1860 / 1860 480 / 480
Output Total 375 / 375 810 / 810
Balance 1485 / 1485 -330 / -330
Physical Exam
-
General: No Apparent Distress and Comfortable
HEENT: Negative Oxygen
Respiratory: Clear to Auscultation
Cardiac: Regular Rhythm and S1/S2; Negative Murmur or Rub
GI: Soft and Nontender
Musculoskeletal: No Edema
Neuro: Awake, Alert, Oriented, No Motor Deficits and Nonfocal/Grossly Intact
Psych: Calm
--- NOTE | 2024-09-04 14:46 | CM ---
CM reviewed SNF referrals w/ pt spouse. Spouse stated preference is [facility] and [facility] as backup.
CM spoke w/ [facility] who stated she will confirm w/ CM once she completes her walk through
CM spoke w/ [facility] admissions who stated there are no available beds until tomorrow but if pt unable to remain an additional, he will adjust accordingly for pt to admit tonight.
[facility] is able to accept pt tomorrow morning, requesting 11 am transport. Hospitalist updated and is agreeable for morning d/c
CM updated spouse who is bedside w/ pt
[facility]
Report: [phone] (ASK FOR [facility]URSE [facility])

Plan: [facility] tomorrow via ambulance
[2024-09-04 15:40] VITALS: BP 147/56
[2024-09-04 16:58] VITALS: BP 140/66; PULSE 86; O2SAT 98
[2024-09-04] MEDS: LOVENOX 40 MG SC (18:12)
[2024-09-04] MEDS: SEROQUEL 25 MG PO (21:43)
[2024-09-04] MEDS: LIPITOR 10 MG PO (21:43)
[2024-09-04] MEDS: SINEMET CR 25-100 (EXTENDED RELEASE) 1 TABLET PO (21:43)
[2024-09-04] MEDS: ARICEPT 10 MG PO (21:43)
[2024-09-04 23:15] VITALS: BP 127/64
[2024-09-05 07:55] VITALS: BP 142/74
[2024-09-05 08:16] LABS: Blood Urea Nitrogen 20 mg/dl (9-20); Calcium 8.8 mg/dl (8.4-10.2); Carbon Dioxide 28 mmol/L (22-30); Chloride 99 mmol/L (98-107); Creatine Phosphokinase 169 U/L (55-170); Estimated Creatinine Clearance 90 ml/min; Glucose 111 mg/dl (70-99); Potassium 3.9 mmol/L (3.5-5.1); Sodium 137 mmol/L (135-145); eGFR > 60.00
[2024-09-05] MEDS: ORETIC 12.5 MG PO (08:21)
[2024-09-05] MEDS: SINEMET 25-100 2 TABLET PO (08:21)
[2024-09-05] MEDS: ZOLOFT 25 MG PO (08:22)
[2024-09-05] MEDS: DESENEX/MITRAZOL/ZEASORB 1 APPLIC TOPICAL (08:30)
[2024-09-05] MEDS: FLUAD (65 yr+) 2024-2025 FORMULA 0.5 ML IM (11:26)
--- NOTE | 2024-09-05 11:26 | CM ---
Pt to d/c to [facility] today. Confirmed w/ [facility].
Updated hospitalist, agreeable to d/c.
Updated pt's spouse on d/c today to SNF, agreeable
IMM reviewed, copy on chart
Ambulance transport arranged for 3:30 pm
[facility]
Report: [phone] (ASK FOR [facility] NURSE [facility])

Plan: [facility] tomorrow via ambulance
[2024-09-05 13:33] VITALS: BP 128/52
--- NOTE | 2024-09-05 13:46 | W.PN.HOSP.TC ---
Today's Communication/Plan
-
d/c snf rehab
Assessment / Plan
Assessment / Plan
# Acute rhabdomyolysis - nontraumatic
patient was on floor for few hours
CPK ~ 3.4 k at admission, trended down to 189
resolved with IVF
No JEROD, stop further IVF
#Acute on chronic bilateral lower extremity weakness
#Mechanical falls
PT recommends short-term rehab, consult OT -CM informed 09/02
Lives with
#Bilateral lower extremity edema
Venous Dopplers negative for DVT, shows right Erickson's cyst
Continue Tubigrip's, continue hydrochlorothiazide 12.5 mg daily
#Parkinson's disease
Continue Sinemet
#Dementia
Continue Aricept
#Anxiety/depression
Continue SSRI
#Hyperlipidemia
Continue statin
DVT prophylaxis�subcu Lovenox
Full code
More than 30 minutes spent in discharge including
Final examination of the patient
Summarizing hospital stay
Instructions for continuing care to all relevant caregivers
Preparation of discharge records, prescriptions, and referral forms
Total time spent (in minutes): 39 mins
Anticipated Discharge: Today
Subjective/Interval History
-
Date of Service: September 05, 2024
Resting comfortably in bed
No acute issues reported
Objective Data
-
Labs:
Laboratory Results
09/05/24
07:09
Sodium 137
Potassium 3.9
Chloride 99
Carbon Dioxide 28
BUN 20
Creatinine 0.7
Glucose 111 H
Calcium 8.8
Vital Signs:
Vital Signs
Temp Pulse Resp BP Pulse Ox
98 F 78 18 128/52 96
09/05/24 13:33 09/05/24 13:33 09/05/24 13:33 09/05/24 13:33 09/05/24 13:33
I&O
09/04/24 09/05/24 09/06/24
06:59 06:59 06:59
Intake Total 480 / 480 480 / 480 180 / 180
Output Total 810 / 810 325 / 325 300 / 300
Balance -330 / -330 155 / 155 -120 / -120
Review of Systems
-
Respiratory: Reports No Symptoms
Cardiac: Reports No Symptoms
Abdomen/GI: Reports No Symptoms
Physical Exam
-
General: No Apparent Distress and Comfortable
HEENT: Negative Oxygen
Respiratory: Clear to Auscultation
Cardiac: Regular Rhythm and S1/S2; Negative Murmur or Rub
GI: Soft and Nontender
Musculoskeletal: No Edema
Neuro: Awake, Alert, Oriented, No Motor Deficits and Nonfocal/Grossly Intact
Psych: Calm
--- NOTE | 2024-09-07 15:58 | W.DCSUMMARY ---
Discharge Summary
Discharge Data
Date of Admission: 09/02/24
Date of Discharge: 09/05/24
-
Pending Results: No
Hospital Course
Discharging Physician : Dr Norm Witt
Disposition : To home
Primary care physician : Dr Misha Riddle
Principal Discharge diagnosis :
Nontraumatic rhabdomyolysis
Ambulatory dysfunction
Chronic Discharge diagnosis :
Chronic lower extremity edema
Erickson's cyst
Parkinson's disease
Cognitive impairment
Anxiety/depression
Hyperlipidemia
Hospital Course :
Patient is a 74-year-old male with no mentioned past medical history was brought in by family after patient was found on the floor. Patient have history of Parkinson and chronic ambulatory dysfunction and lives with spouse. Patient apparently was
trying to get out of bed and walk to the bathroom although ended up having a trip and fall, patient was on floor for apparently 3 hours. In ER trauma workup with CT head/neck was negative for any abnormality. Patient was noted to having
rhabdomyolysis with CPK elevated ~ 3500. Patient was started on IV fluid and was admitted to medical floor for further monitoring. Patient did not develop any renal dysfunction from rhabdomyolysis. Post improvement patient was discharged to
care home facility for rehab.
Important imaging findings :
None
Procedure findings :
None
Discharge Plan
-
Patient Disposition: [facility]/SNF
Discharge Diagnosis/Procedures: Mechanical fall, rhabdomyolysis
Condition: Fair
Diet: Regular
Activity: As tolerated
Driving Restrictions: No driving
Bathing Restrictions: OK to Shower
Referrals:
Misha Riddle MD [Family Provider] - in one week
Prescriptions:
Continued
carbidopa-levodopa [Sinemet] 25-100 mg Tablet
2 tab PO TID
carbidopa-levodopa 25-100 mg Tablet Extended Release
1 tab PO HS
Rx Instructions:
25/100 PO HS
sertraline 25 mg Tablet
25 mg PO DAILY
hydrochlorothiazide 12.5 mg Tablet
12.5 mg PO DAILY
Rx Instructions:
given lunch time
simvastatin 20 mg Tablet
20 mg PO HS
donepezil 10 mg Tablet
10 mg PO HS
Centrum Silver Men [id number] mcg Tablet
1 tab PO DAILY
ibuprofen-acetaminophen [Advil Dual Action] 125-250 mg Tablet
2 tab PO DAILYPRN PRN (Reason: mild pain)
quetiapine [Seroquel] 25 mg Tablet
25 mg PO HS
Discharge Orders:
Discharge Patient (As Directed); Ordered 09/05/24
Ordered By: Norm Witt
Discharge Date and Time
Discharge Date/Time: 09/05/24 16:12
Print Language: GABONESE
== END 2024-09-05 16:12 | DRG 558 ==
LOC: 4 EAST ACU 14:07
PROVIDERS: Emergency Medicine; Family Medicine; Student in an Organized Health Care Education/Training Program; ADMITTING PHYSICIAN Internal Medicine; ATTENDING PHYSICIAN Hospitalist; EMERGENCY PHYSICIAN Emergency Medicine; FAMILY PHYSICIAN Family Medicine
PROC: 3E02340 Introduction of Influenza Vaccine into Muscle, Percutaneous Approach (ICD-10-PCS; 2024-09-02)
DX: M62.82 Rhabdomyolysis (principal); F02.83 Dementia in other diseases classified elsewhere, unspecified severity, with mood disturbance; F02.84 Dementia in other diseases classified elsewhere, unspecified severity, with anxiety; G20.A1 Parkinson's disease without dyskinesia, without mention of fluctuations; I10 Essential (primary) hypertension; E78.00 Pure hypercholesterolemia, unspecified; R29.6 Repeated falls; R53.1 Weakness; R60.0 Localized edema; F32.A Depression, unspecified; F17.200 Nicotine dependence, unspecified, uncomplicated; Z11.52 Encounter for screening for COVID-19; Z79.899 Other long term (current) drug therapy; Z23 Encounter for immunization
CPT/HCPCS: 70450; 80048; 80053; 81003; 81015; 82550; 83735; 84443; 85025; 85027; 86803; 87502; 87811; 90662; 93005; 93970; 96360; 97116; 97166; 97530; 99285; G0008

== ENCOUNTER 2025-07-12 22:48 | Observation (INO) | payer MEDICARE, OTHER, SELFPAY ==
[2025-07-12 15:00] VITALS: BP 153/71
[2025-07-12 15:17] LABS: Hematocrit 37.3 % (39.0-52.0); Hemoglobin 12.7 g/dL (13.0-18.0); Mean Corp Hgb Conc. 34.0 g/dL (33.0-37.0); Mean Corpuscular Volume 92.3 fL (80.0-94.0); Nucleated Red Blood Cells % 0 % (-); Platelet Count 194 10^3/uL (130-400); Red Cell Dist. Width 11.9 % (11.5-14.5)
[2025-07-12 15:31] LABS: ALT (SGPT) 13 U/L (0-50); AST (SGOT) 36 U/L (17-59); Albumin 4.0 g/dl (3.5-5.0); Alkaline Phosphatase 64 U/L (38-126); Blood Urea Nitrogen 21 mg/dl (9-20); Calcium 9.0 mg/dl (8.4-10.2); Carbon Dioxide 27 mmol/L (22-30); Chloride 108 mmol/L (98-107); Glucose 104 mg/dl (70-99); Potassium 4.2 mmol/L (3.5-5.1); Sodium 140 mmol/L (135-145); Total Protein 7.0 g/dl (6.3-8.2); eGFR > 60.00
--- NOTE | 2025-07-12 18:19 | ED.GENMED ---
History of Present Illness
General
Chief Complaint: Weakness
Source: patient and spouse
Exam Limitations: none
Time Seen by Provider: 07/12/25 17:56
History of Present Illness
History of Present Illness:
75yo right hand dominant male with a history of Parkinson's disease presenting with his for evaluation of right arm weakness. Symptoms began over 48 hours ago on Tuesday. 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
difficulty with picking up objects which is new for him. He denies any symptoms in the other extremities. He spoke with his neurologist (Dr. Candi Adams, [place]) who advised him to go to the ED for stroke evaluation. He is otherwise
asymptomatic and denies any headache, visual changes, dizziness, paresthesias, chest pain, shortness of breath.
Past History
Past History
ED Past Medical History: Psychiatric (Parkinson's, anxiety, depression)
Social History
Tobacco: Non-smoker
Alcohol: None
Drug: None
Personal:
Living: with family
Phy Exam
General Physical Exam
General Presentation: well appearing and no apparent distress
General Skin: warm and dry
General Habitus: normal
General Mental: alert
ENT Exam
ENT Exam: normocephalic
Cardiovascular Exam
Cardiovascular Exam: normal peripheral pulses (2+ radial pulses bilaterally)
Pulmonary Exam
Pulmonary Exam: no respiratory distress
Neurological Exam
Neurological Exam: alert, CN II-XII intact, no sensory deficits, speech normal and other (+R wrist drop noted. Unable to extend wrist or fingers. Decreased web analyst strength noted. No pronator drift. No other focal deficits noted. )
NIH Stroke Score
Level of Consciousness: 0 - Alert
LOC questions: 0-Answers both correctly
LOC Commands: 0-Performs both correctly
Best Gaze: 0-Normal
Visual Escobar: 0=Normal, no visual loss
Facial palsy: 0=Normal, symmetrical
Motor - Right Arm: 0=No drift 10 seconds
Motor - Left Arm: 0=No drift 10 seconds
Motor - Right Le-No drift 5 seconds
Motor - Left Le-No drift 5 seconds
Limb Ataxia: 0-Absent
Sensation: 0-Normal
Best Language: 0-No aphasia
Dysarthria: 0-Normal
Extinction and Inattention: 0-No abnormality
Total Score:: 0
Skin Exam
Skin Exam: normal color and warm/dry
Psychiatric Exam
Psychiatric Exam: normal mood/affect
Course
Orders/Labs/Results
Orders:
Orders
07/12/25 15:10
CMP [Comprehensive Metabolic Panel] Urgent
Complete Blood Count/With Diff Urgent
07/12/25 18:18
Electrocardiogram (*1) Urgent
Reason for Study: TIA/Stroke
CT Head & Neck Angio W/wo IV Urgent
Comment:
Reason For Exam: new RUE weakness
EKG- Treatment ONCE
07/12/25 21:33
Aspirin Chewable [Low Strength Aspirin] 324 mg PO NOW STA
07/12/25 22:28
Admit/Transfer Patient As Directed
Co-Sign Provider:
Level of Care: Observation services
Assign to:: Telemetry
Physician / Group: Andrew Austin
Diagnosis: right wrist drop
Reason for Telemetry: CVA/TIA
Date to Stop Telemetry: 07/15/25
Time to Stop Telemetry: 11:00
PRN Pain Medication Management As Directed
May give lesser potent ordered pain med per pt: Yes
preference::
Protocol:: Medication orders for pain may be administered in a
manner that supports deferring to patient preference
when the pt is:
- Requesting an ordered lesser potent pain medication.
Least to most potent pain medications are defined
as: acetaminophen < NSAID < tramadol < opioids
(morphine, oxycodone, hydromorphone).
- Requesting a lesser dose of the same medication IF
ORDERED.
- Requesting a less intrusive route of administration
if both routes are prescribed by the provider (PO <
IV).
07/12/25 22:30
Code Status As Directed
Resuscitation Status: Full Code
07/15/25 11:00
DC Protocol for Telemetry ONCE
Abnormal Lab Results
07/12/25
15:10
RBC 4.04 L 10^6/uL
(4.70-6.10)
Hgb 12.7 L g/dL
(13.0-18.0)
Hct 37.3 L %
(39.0-52.0)
MCH 31.4 H pg
(27.0-31.0)
MPV 10.9 H fL
(7.4-10.4)
Absolute Lymphs (auto) 1.0 L 10^3/uL
(1.2-3.4)
Absolute Monos (auto) 0.7 H 10^3/uL
(0.1-0.6)
Lymphocytes % 16.9 L %
(20.5-51.1)
Monocytes % 12.1 H %
(1.7-9.3)
Chloride 108 H mmol/L
(98-107)
BUN 21 H mg/dl
(9-20)
Glucose 104 H mg/dl
(70-99)
07/12/25 15:10
07/12/25 15:10
Vital Signs
Initial and Last Documented VS:
Initial Vital Signs
Temp Pulse Resp BP Pulse Ox
97.5 F 70 20 153/71 98
07/12/25 15:00 07/12/25 15:00 07/12/25 15:00 07/12/25 15:00 07/12/25 15:00
Last Documented Vital Signs
Temp Pulse Resp BP Pulse Ox
97.5 F 52 13 187/76 98
07/12/25 15:00 07/12/25 23:15 07/12/25 23:15 07/12/25 23:00 07/12/25 18:52
MDM/Problems Addressed
Differential Diagnosis Includes:
75yoM here with new R arm weakness and trouble with grasping objects x 2 days. Hx of Parkinson's disease. Sent in by neurologist to r/o CVA. Evidence of right wrist drop noted on exam. No other focal deficits noted. NIHSS 0. Differential
diagnosis includes but is not limited to: CVA, worsening Parkinson's disease, radial nerve palsy
Initial ED plan: Basic labs obtained in triage which are unremarkable. Will check EKG and CTA head/neck. Patient out of window for TNK as symptoms started >24 hours ago.
*Pulse Oximetry
SaO2: 98
Oxygen Mode of Delivery: Room air
Patient hypoxic: no
*EKG
Interpreted by ED Provider?: Yes
EKG Intrepretation Date: 07/12/25
Heart Rate: 54
Rate: bradycardiac
Rhythm: sinus
[place]: left axis deviation
Interval: first degree heart block
QRS Pattern: normal QRS
Ischemia: no ischemia
*Critical Care Note
Total Time (30-74mins, 75-104mins- exclusive of procedures): Not Applicable
Update Note
Update Note:
CT negative for bleed or large vessel occlusion. EKG shows sinus bradycardia. Will admit for neurology evaluation and stroke rule out. Aspirin load ordered.
ED Attending Note
-
Portions of this chart may have been created with voice recognition software.� Occasional wrong word or��sound alike� substitutions may have occurred due to the inherent limitations of voice recognition software.
Discharge Plan
Departure
Patient Disposition: Admit
Date of Disposition: 07/12/25
Time of Disposition: 21:34
Presentation/result/management discussed w/ accepting MD/DO: Hospitalist
Discharge Problem:
Weakness of right arm
Interventions
Interventions:
*Risk Screen - Suicide Last Done: 07/12/25 18:45
*General Assessment Last Done: 07/12/25 18:45
*Neglect/Abuse Screening Last Done: 07/12/25 18:45
*ED COVID-19 Vaccine History Last Done: 07/12/25 18:45
*ED Influenza Vaccine History Last Done: 07/12/25 18:45
[facility] Risk Assessment Tool Last Done: 07/12/25 19:47
ED- Cardiac Assessment Last Done: 07/12/25 20:09
ED- Neurological Assessment Last Done: 07/12/25 18:55
ED- Pulmonary Assessment Last Done: 07/12/25 20:09
[2025-07-12 18:52] VITALS: BP 166/69
[2025-07-12 21:03] VITALS: BP 168/71
--- NOTE | 2025-07-12 21:40 | HPS.HSE ---
Addendum entered and electronically signed by Andrew Austin MD 07/12/25 23:03:
This is an addendum to the H&P written by Zulma Alvarado on 07/12/2025. �Patient seen and examined independently with [facility] ASSOCIATE.
75-year-old male past medical history of Parkinson disease, cognitive impairment, anxiety/depression, dementia, hyperlipidemia, presenting with right hand weakness starting 2 days ago. 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
objects. �He spoke with his neurologist Dr. Adams at [facility] who told him to go to emergency room for stroke evaluation.
On examination he has wrist drop of right hand and unable to lift any of the fingers.
Labs unremarkable.
CTA head and neck shows no acute intracranial abnormality.
Patient with right hand weakness rule out CVA. �Could be radial nerve palsy. �Aspirin given. �Check MRI brain. �Neurology consulted.
Original Note:
Family Physician
-
Family Physician: Misha Riddle
Chief Complaint
-
right arm weakness
History of Present Illness
Patient is a 75-year-old male with past medical history significant for Parkinson disease, hypertension, hyperlipidemia and dementia who presented to [facility] ED for evaluation of right arm weakness. Patient and family at bedside who assisted in HPI.
Patient reports that he an abrupt onset of right hand being like a 'claw,' on Tuesday at dinner time. He denies any numbness of tingling, no dizziness, palpitations, vision changes, no falls or trauma. Patients reached out to physical therapy
and Neurologist after no improvement yesterday with extra dose carbidopa-levodopa, who both recommended to come the to ED for evaluation to rule out stroke.
Medical History
Past Medical History
Past Medical History: Reports Other
Additional Past Medical History:
Parkinson disease
hypertension
hyperlipidemia
dementia
Past Surgical History: Reports Other
Additional Past Surgical History:
tooth extractions
Social History
Tobacco: Smoker
Alcohol: None
Drug: None
Personal:
Living: With Family
Employment: Retired
Family History
Family History: Not pertinent
Allergies / Home Medications
Allergies reflects when Allergies were last updated in [employer].
Home Medications with original date entered in [employer]
Allergy/Medication List:
Allergies
Allergy/AdvReac Type Severity Reaction Status Date / Time
No Known Allergies Allergy Verified 08/31/24 16:50
Home Medications
carbidopa 25 mg-levodopa 100 mg tablet (Sinemet) 2 tab PO TID Neurological Condition 09/01/24
carbidopa ER 25 mg-levodopa 100 mg tablet,extended release 1 tab PO HS Neurological Condition 09/01/24
donepezil 10 mg tablet 10 mg PO DAILY Alzheimer's 09/01/24
ibuprofen 125 mg-acetaminophen 250 mg tablet (Advil Dual Action) 2 tab PO DAILYPRN PRN mild pain 09/01/24
ifwceaxu-bj-vzsut 300 mcg-K 60 mcg-lycop 600 mcg-lutein 300 mcg tablet (Centrum Silver Men) 1 tab PO DAILY Supplement 09/01/24
quetiapine 25 mg tablet (Seroquel) 50 mg PO HS Mental Health/Anxiety 09/02/24
mirtazapine 7.5 mg tablet 15 mg PO HS 07/12/25
Review of Systems
-
History Source: Patient and Family
Constitutional: Denies Fever or Chills
EENT: Denies Sore Throat
Respiratory: Denies Cough, Hemoptysis or Trouble Breathing
Cardiac: Denies Chest Pain, Diaphoresis, Palpitations or Syncope
Abdomen/GI: Denies Abdominal Pain, Nausea, Vomiting or Diarrhea
: Denies Dysuria, Frequency or Urgency
Musculoskeletal: Denies Joint Pain
Skin: Denies Rash
Neurological: Reports Other (right wrist drop inability to straighten digits ); Denies Dizzy, Headache, Weakness or Numbness
Physical Exam
Vital Signs
Vital Signs
Temp Pulse Resp BP Pulse Ox
97.5 F 51 16 168/71 98
07/12/25 15:00 07/12/25 21:04 07/12/25 21:04 07/12/25 21:03 07/12/25 18:52
Physical Exam
General: Well Developed, Well Nourished, No Apparent Distress, Comfortable and Obese
HEENT: NormoCephalic, Moist mucous membranes, PERRLA, Nose Appears Normal and Ears Appear Normal
Respiratory: Clear; No Wheezes, Rales, Rhonchi or Non Labored Respirations
Cardiac: S1/S2 and Regular Rhythm; No Murmur, Rub or Gallop
GI: Soft, Non Tender, Non Distended and Normal Bowel Sounds
Musculoskeletal: No Clubbing and No Cyanosis
Skin: Warm and IV/Catheter Site
Neuro: Awake, AO x 3 and Other (right wrist drop, potential radial nerve palsy )
Psych: Calm
Laboratory Results
-
07/12/25 15:10
07/12/25 15:10
Laboratory Results
Total Bilirubin 0.5 mg/dl (0.2-1.3) 07/12/25 15:10
AST 36 U/L (17-59) 07/12/25 15:10
ALT 13 U/L (0-50) 07/12/25 15:10
Alkaline Phosphatase 64 U/L (38-126) 07/12/25 15:10
Data Reviewed
-
CT Scan: Report Reviewed by me (Head/Neck CTA: No acute intracranial hemorrhage. The cervical carotid and vertebral arteries are patent without significant plaque, stenosis, occlusion, or dissection. No kas[place] of [place]e region aneurysm or
stenosis. No cerebral artery aneurysm, significant plaque, stenosis, thrombus, or occlusi)
Lab Data: Labs Reviewed by me
Impression/Plan
-
IMPRESSION/PLAN:
#right arm weakness 2/2 CVA/TIA vs. injury vs. nerve palsy
abrupt onset of right hand being like a 'claw,' on Tuesday at dinner time, with no improvement with extra dose of carbidopa-levodopa
labs unremarkable
EKG: SINUS BRADYCARDIA WITH 1ST DEGREE A-V BLOCK
LEFT AXIS DEVIATION
Head/Neck CTA: No acute intracranial hemorrhage.
The cervical carotid and vertebral arteries are patent without significant plaque, stenosis, occlusion, or dissection.
No [place] of [place] region aneurysm or stenosis.
No cerebral artery aneurysm, significant plaque, stenosis, thrombus, or occlusion.
Degree of stenosis based on NASCET criteria.
- Admit to telemetry
- Consult Neurology
- MRI in morning
- NIH and neuro checks per protocol
#Parkinson disease
- continue carbidopa-levodopa
#dementia
- continue donepezil, mirtazapine and quetiapine
Code status: Full code
DVT prophylaxis: SCDs
[2025-07-12 22:00] VITALS: BP 184/77
[2025-07-12] MEDS: LOW STRENGTH ASPIRIN 324 MG PO (22:38)
[2025-07-12 23:00] VITALS: BP 187/76
[2025-07-13] VITALS (8 sets, daily range): BP systolic 118–165; BP diastolic 58–82; PULSE 52–56; O2SAT 95; BMI 26.9
--- NOTE | 2025-07-13 03:00 | PTCARENOTE ---
Received Patient from ED. Patient AAOx3, Patient assessed...small scab on right knee. NIH = 3;unchanged from ED assessment... Right arm ataxia and slight drift/weakness primarily in right wrist. Multiple labs ordered. Covering provider said OK to
wait for phlebotomy to draw in am. Patient on regular diet but only to have water until CVE panel is drawn. Bed alarm placed for safety. Patient verbalized not to get oob without ringing for help. Call keen in reach.
[2025-07-13] MEDS: SINEMET CR 25-100 (EXTENDED RELEASE) 1 TABLET PO ×2 (03:11→21:24)
[2025-07-13] MEDS: SEROQUEL 50 MG PO ×2 (03:13→21:24)
[2025-07-13 06:24] LABS: HDL Cholesterol 33 mg/dl; LDL Cholesterol, Calculated 119 mg/dl; Very Low Density Lipoprotein 26 mg/dl (0-30)
[2025-07-13 06:27] LABS: INR 1.19; PT 15.3 Sec (11.4-14.6)
[2025-07-13 06:28] LABS: APTT 31.4 Sec (23.4-35.0)
[2025-07-13 06:36] LABS: Troponin I 0.013 ng/ml
--- NOTE | 2025-07-13 07:36 | W.PN.HOSP.TC ---
Today's Communication/Plan
-
see bold
Assessment / Plan
Assessment / Plan
#Acute right wrist drop
Onset 07/10/2025, head CT 07/12/2025 negative
Seen by neurology, who recommends brain MRI and C-spine MRI
Status post aspirin 324 mg in the ED
Neurology recommends aspirin 81 mg daily, atorvastatin 80 mg daily until stroke ruled out by brain MRI
PT/OT
#Parkinson disease
Continue Sinemet
#Dementia
Continue Aricept
#Mood disorder
Continue Seroquel, mirtazapine
DVT prophylaxis�subcu Lovenox
Full code
Total time spent to see the patient on the floor, examine the patient, review data and lab results, discuss treatment plan with patient, nursing staff around 38 minutes.
Physical Exam
General: No acute distress
HEENT: Normocephalic, Atraumatic, EOMI, MMM
Respiratory: Clear to Auscultation bilaterally
Cardiac: Normal S1/S2, Regular Rate and Rhythm
GI: Soft, Nontender, Nondistended, Normal Bowel Sounds
Extremities: No Clubbing, Cyanosis, or Edema
Neuro:
Severe right hand weakness noted
Psych: Calm, Cooperative
Anticipated Discharge: 24 - 48 hours
Subjective/Interval History
-
Date of Service: July 13, 2025
Patient continues to have a right wrist drop, which started on 07/10/2025. Denies chest pain, denies shortness of breath. No fever, no vomiting.
Objective Data
-
Labs:
Laboratory Results
07/13/25
05:53
PT 15.3 H
INR 1.19
APTT 31.4
Vital Signs:
Vital Signs
Temp Pulse Resp BP Pulse Ox
97.4 F 57 16 165/82 98
07/13/25 02:11 07/13/25 02:11 07/13/25 02:11 07/13/25 02:11 07/13/25 02:11
I&O
07/12/25 07/13/25 07/14/25
06:59 06:59 06:59
Intake Total 480 / 480
Output Total 200 / 200
Balance 280 / 280
[2025-07-13 08:23] LABS: Glycohemoglobin (HgbA1c) 5.5 % (4.0-5.9)
--- NOTE | 2025-07-13 08:28 | CON.NEURO ---
Addendum entered and electronically signed by Hardeep Mike MD 07/13/25 09:20:
His exam potentially could localize as well to the ventral portion of C6-C8 causing hand weakness without numbness. Acute radiculopathies could be caused by a disc herniation. He's not complaining of pain making this unlikely, but this possibility
should be ruled out by an MRI C-spine w/o contrast.
Original Note:
Neuro Assessment/Plan
Assessment
# Right hand weakness
- concern for stroke vs. radial nerve palsy
He developed sudden right hand weakness, which is concerning for a stroke. Specifically a Left hand knob stroke in the left motor strip. On exam, he still has filter changer strength, albeit less than the left, and also can abduct his thumb and pinky when his
fingers are flat consistent with a radial nerve palsy, not stroke. He doesn't have numbness though in a radial nerve distribution. I recommend an MRI w/o contrast to assess for stroke to evaluate for these possibilities. His LKN was Tuesday 07/10,
2 days prior to presentation. Outside of POINT window for low NIHSS stroke. I recommend loading with aspirin 325mg once then 81mg aspirin daily for now. He should also start 80mg atorvastatin for secondary stroke prevention and get an TTE. LDL this
admission is >55 and HgbA1c is 5.5. We're unable to get an EMG inpatient and an EMG would be unlikely to show a radial nerve palsy this close to the event anyway. I also considered other possibities for right hand weakness such as post-ictal
paralysis from seizure, dystonia, and migraines. No seizure activity and long lasting paralysis makes post-ictal paralysis unlikely. No change to weakness with Sinemet and he has flacid weakness on exam makes dystonia unlikely. No headache makes
migraine unlikely as well
Plan
# Right hand weakness
- MRI head w/o contrast
- TTE
- 325 aspirin already given per MAR. c/w 81mg aspirin daily
- atorvastatin 80mg daily
Consultation
Order
Date of Consultation: 07/13/25
Requesting Provider: Dr. Benavides
Reason for Consult: Right hand weakness
Subjective/Objective
Subjective Data
Date of Service: July 13, 2025
HPI: 75 y.o. male w/ PMH of PD w/ cognitive impairment, anxiety/depression and HLD presenting with right hand weakness. His LKN of 07/10/25. He suddenly developed right hand weakness. Unclear when during 07/10/25 it occurred or if we woke up like
this. He sometimes sleeps with pillows under his arms, but he isn't sure if he did that this time. No numbness associated with weakness. His hand is a claw and can still filter changer, but filter changer is weaker then left. He is right handed.
PMH: PD w/ cognitive impairment, anxiety/depression and HLD
PSH: None
FH: No FH of stroke
Allergies: NKDA
SH: Quit smoking 1 year ago, drinks 1 drink per week, no drug use, retired [employer]
Meds:
carbidopa 25 mg-levodopa 100 mg tablet (Sinemet) 2 tab PO TID Neurological Condition 09/01/24
carbidopa ER 25 mg-levodopa 100 mg tablet,extended release 1 tab PO HS Neurological Condition 09/01/24
donepezil 10 mg tablet 10 mg PO DAILY Alzheimer's 09/01/24
ibuprofen 125 mg-acetaminophen 250 mg tablet (Advil Dual Action) 2 tab PO DAILYPRN PRN mild pain 09/01/24
ayavwler-hd-cebmw 300 mcg-K 60 mcg-lycop 600 mcg-lutein 300 mcg tablet (Centrum Silver Men) 1 tab PO DAILY Supplement 09/01/24
quetiapine 25 mg tablet (Seroquel) 50 mg PO HS Mental Health/Anxiety 09/02/24
mirtazapine 7.5 mg tablet 15 mg PO HS 07/12/25
Objective Data
Vital Signs
Temp Pulse Resp BP Pulse Ox
36.4 C 47 16 152/73 98
07/13/25 07:07 07/13/25 07:07 07/13/25 07:07 07/13/25 07:07 07/13/25 07:07
Lab Results
07/12/25 15:10
07/12/25 15:10
PT 15.3 Sec (11.4-14.6) H 07/13/25 05:53
INR 1.19 07/13/25 05:53
APTT 31.4 Sec (23.4-35.0) 07/13/25 05:53
Sodium 140 mmol/L (135-145) 07/12/25 15:10
Potassium 4.2 mmol/L (3.5-5.1) 07/12/25 15:10
BUN 21 mg/dl (9-20) H 07/12/25 15:10
Glucose 104 mg/dl (70-99) H 07/12/25 15:10
Calcium 9.0 mg/dl (8.4-10.2) 07/12/25 15:10
LDL Cholesterol, Calc 119 mg/dl 07/13/25 05:53
Patient Allergies
No Known Allergies Allergy (Verified 08/31/24 16:50)
LDL Level: >70, statin ordered
CVA Assessment
Onset of Stroke Symptoms
Onset of symptoms known: Yes
Date of onset of symptoms: 07/10/25
Time pt last seen normal is known: No
NIH Stroke Score
Level of Consciousness: 0 - Alert
LOC Questions: 0-Answers both correctly
LOC Commands: 0-Performs both correctly
Best Horizontal Gaze: 0-Normal
Visual [place]: 0=Normal, no visual loss
Facial Palsy: 0=Normal, symmetrical
Motor - Right Arm: 0=No drift 10 seconds
Motor - Left Arm: 0=No drift 10 seconds
Motor - Right Le-No drift 5 seconds
Motor - Left Le-No drift 5 seconds
Limb Ataxia: 0-Absent
Sensation: 0-Normal
Best Language: 0-No aphasia
Dysarthria: 0-Normal
Extinction and Inattention: 0-No abnormality
NIH Total Score:: 0
Tenecteplase Contraindications
Inclusion and Exclusion criteria reviewed: Yes
Reasons for NON-Tx with Thrombolytics ABSOLUTE Exclusions: Time-out of window
Review of Systems
-
All other systems: Reviewed and negative
Physical Exam
-
General: Well Developed, Well Nourished, No Apparent Distress and Comfortable
Eyes: PERRLA
HEENT: Normocephalic, Atraumatic and Anicteric
Respiratory: Clear to Auscultation
Cardiac: Regular Rhythm
GI: Normal Bowel Sounds
Skin: Other (dermatitis on scalp)
Extremities: No Clubbing
Psych: Unremarkable
Extended Neurological Exam
Mood & Affect: Mood Unremarkable and Affect Unremarkable
Attention Span & Concentration: Awake, Alert, Interactive and Mild Difficulty with 2 Step Request (confused right and left during testing)
Memory: Able to Recall (1/3 on delayed recall spontaneously, 2/3 with prompting)
Tremor: Hand Tremor Absent
Involuntary Movement: None
Speech: Quantity Unremarkable, Rate of Production Unremarkable and Other (+ mild hypophonia)
Cranial Nerve II: Left Eye: Pupillary Reactivity Unremarkable, Pupillary Size Unremarkable and Visual [place]obar Intact
Cranial Nerve II: Right Eye: Pupillary Reactivity Unremarkable, Pupillary Size Unremarkable and Visual [place]obar Intact
Cranial Nerves III, IV, : Extraocular Movement: Extraocular Movement Full in all Directions
Cranial Nerve V: Facial Sensation: Intact to Light Touch
Cranial Nerve VII: Facial Symmetry: Normal Facial Symmetry
Cranial Nerve VIII: Hearing: Unremarkable Hearing to Normal Conversational Volume
Cranial Nerves IX, X: Palate Movement: Palate Elevation Symmetric
Cranial Nerve XI: Shoulder Shrug: Unremarkable
Cranial Nerve XII: Tongue Protusion: Midline
Muscle Strength, Overall: Other (5/5 everywhere except at right hand. 0/5 on finger extension, 4/5 on thumb and pinky abduction and on filter changer strength on right hand)
Muscle Bulk & Tone: Bulk Unremarkable and Other (rigidity in bilaterally upper extremities)
Pronator Drift: No Drift in Upper Extremities
Deep Tendon Reflexes: Unremarkable Throughout
Touch Sensation: Testing in Upper Extremities (no numbness to pinprick in right hand. Hand normal sensation in right arm.)
Coordination: Nfjspm-olkh-jdspvl Testing Unremarkable
Gait & Station: Unable to Assess (he needs to filter changer with his right hand to use a walker, but can't filter changer with his right hand now. )
Data Reviewed
-
CT-A: Image Reviewed (No LVO. No significant stenoses)
CT Head: Image Reviewed (No acute hemorrhage)
Medications
-
Active Medications
Generic Name Dose Route Start Last Admin
Trade Name Freq PRN Reason Stop Dose Admin
Acetaminophen 650 mg 07/13/25 02:07
Acetaminophen 650 Mg Rectal Suppository RECTAL 08/10/25 02:06
Q4HPRN PRN
NUNEZ, mild pain, or temp >100.4F
Acetaminophen 650 mg 07/13/25 02:07
Acetaminophen 325 Mg Tablet PO 08/10/25 02:06
Q4HPRN PRN
NUNEZ, mild pain, or temp >100.4F
Aspirin 81 mg 07/13/25 08:00
Aspirin 81 Mg Chewable Tablet PO 08/10/25 07:59
DAILY CIRILO
Carbidopa/Levodopa 1 tablet 07/13/25 02:07 07/13/25 03:11
Carbidopa (25 Mg) Levodopa (100 Mg) Extended Release Tablet PO 08/10/25 02:06 1 tablet
HS CIRILO Administration
Carbidopa/Levodopa 2 tablet 07/13/25 08:00
Carbidopa (25 Mg)/Levodopa (100 Mg) Regular Release Tablet PO 08/10/25 07:59
TID CIRILO
Donepezil HCl 10 mg 07/13/25 08:00
Donepezil Hcl 10 Mg Tablet PO 08/10/25 07:59
DAILY CIRILO
Mirtazapine 15 mg 07/13/25 22:00
Mirtazapine 15 Mg Regular Release Tablet PO 08/10/25 21:59
HS CIRILO
Multivitamins Therapeutic 1 tablet 07/13/25 08:00
Multivitamin Tablet PO 08/10/25 07:59
DAILY CIRILO
Quetiapine Fumarate 50 mg 07/13/25 02:07 07/13/25 03:13
Quetiapine 25 Mg Tablet PO 08/10/25 02:06 50 mg
HS CIRILO Administration
Sodium Chloride 0 flush 07/13/25 03:00
Sodium Chloride 0.9% (Flush) Syringe IV 08/10/25 02:59
PER PROTOCOL CIRILO
Home Medications
�Medication �Instructions �Recorded
carbidopa 25 mg-levodopa 100 mg 2 tab PO TID Neurological Condition 09/01/24
tablet (Sinemet)
carbidopa ER 25 mg-levodopa 100 mg 1 tab PO HS Neurological Condition 09/01/24
tablet,extended release
donepezil 10 mg tablet 10 mg PO DAILY Alzheimer's 09/01/24
ibuprofen 125 mg-acetaminophen 250 2 tab PO DAILYPRN PRN mild pain 09/01/24
mg tablet (Advil Dual Action)
vbbrxtdf-dr-zrhva 300 mcg-K 60 1 tab PO DAILY Supplement 09/01/24
mcg-lycop 600 mcg-lutein 300 mcg
tablet (Centrum Silver Men)
quetiapine 25 mg tablet (Seroquel) 50 mg PO HS Mental Health/Anxiety 09/02/24
mirtazapine 7.5 mg tablet 15 mg PO HS 07/12/25
[2025-07-13] MEDS: ARICEPT 10 MG PO (10:18)
[2025-07-13] MEDS: SINEMET 25-100 2 TABLET PO ×3 (10:18→21:24)
[2025-07-13] MEDS: LOW STRENGTH ASPIRIN 81 MG PO (10:18)
[2025-07-13] MEDS: THERAGRAN 1 TABLET PO (10:19)
--- NOTE | 2025-07-13 14:05 | CM ---
Initial assessment completed with and daughter. Patient lives with in a 1 story no basement home at [facility] with 5 steps to enter. [employer]EC[employer] patient was assisted by for ADL's and ambulation. He does not drive. DME is RW,
standard walker, SPC, w/ch, tri wheeled rollator no seat and 4 wheeled rollator with seat. No in-home services. Does not have HC-POA. Documents provided. No VA benefits. No psychiatric hospitalizations. Does have history of anxiety and depression.
PCP is Dr. Misha Riddle. Pharmacy is [facility] on [address] in [place]. Discharge POC: Anticipate SNF. Awaiting therapy eval and rec.
[2025-07-13] MEDS: LIPITOR 80 MG PO (16:50)
[2025-07-13] MEDS: LOVENOX 40 MG SC (16:50)
--- NOTE | 2025-07-13 16:52 | PTOTSP ---
ST Consult
Chart reviewed. 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 In the ED, pt was AAOx3 with an NIHSS of 3 for R arm ataxia, slight drift, and weakness in R wrist. Pt passed
nursing dysphagia screening - pt was started on a regular solids and thin liquids diet. Pt was dx with R arm weakness 2/2 TIA/CVA vs injury vs nerve palsy. Pt had an MRI of the brain which revealed no acute intracranial abnormality. CTA Head/Neck
also with no acute findings. Pt had a MRI cervical spine that revealed chronic multilevel degenerative disc space narrowing, most severe at C5-C6. Pt has been afebrile and on room air. Lab work is unremarkable. Pt's medical hx significant for
Parkinson's disease, anxiety, depression, HTN, HLD, and cognitive impairment/dementia. Per RN, since admission, there have been no acute concerns regarding any changes in the pt's speech, language, cognition, or swallowing - pt has been tolerating
meals/meds without any concerns.
Given the information listed above, skilled WOUND CARE RN evaluation not indicated at this time. WOUND CARE RN team to sign off. Please re-consult if anything changes. Thank you.
--- NOTE | 2025-07-13 18:37 | W.PN.UPDATE ---
Update Note
Progress Note Update
I was contacted via [employer] about whether this patient could go home today. He had his MRI head and C-spine. I reviewed both images. MRI head was negative for a hand knob stroke. MRI C spine notable for only age related degenerative changes
and no spinal cord abnormalities. Mr. Sanders's right hand weakness is most likely due to a radial nerve palsy. His family told me earlier today that he falls asleep in awkward positions. This could predispose him to developing a radial nerve palsy.
He will need PT/OT and [id number] in 4 weeks for consideration of an EMG/NCS
[2025-07-13] MEDS: REMERON 15 MG PO (21:24)
[2025-07-14 03:08] VITALS: BP 157/76
--- NOTE | 2025-07-14 03:40 | PTCARENOTE ---
Patient's HR dropped to 38 and quickly back to 40s-50s. Patient asymptomatic, unaware. Will post a strip. Will place 2LNC if he drops again, per covering provider.
--- NOTE | 2025-07-14 05:23 | PTCARENOTE ---
Patient dropped to 38 HR again. He was in a deep sleep. As advised, 2LNC placed. Advised covering provider.
[2025-07-14 07:15] VITALS: BP 145/75
[2025-07-14] MEDS: ARICEPT 10 MG PO (08:43)
[2025-07-14] MEDS: THERAGRAN 1 TABLET PO (08:43)
[2025-07-14] MEDS: LOW STRENGTH ASPIRIN 81 MG PO (08:43)
[2025-07-14] MEDS: SINEMET 25-100 2 TABLET PO (08:43)
--- NOTE | 2025-07-14 09:23 | W.PN.HOSP.TC ---
Today's Communication/Plan
-
Discharge today
Assessment / Plan
Assessment / Plan
#Acute right wrist drop
#Right radial nerve palsy
Onset 07/10/2025, head CT 07/12/2025 negative
Brain MRI negative for acute stroke, C-spine MRI with multilevel degenerative disc disease
Seen by neurology, who recommends outpatient EMG/NCS
Status post aspirin 324 mg in the ED. Hemoglobin A1c 5.5, LDL 119
Medically stable for discharge today, follow-up with his PCP and usual neurologist in the office in 1-2 weeks
Seen by PT/OT, who recommends home care versus short-term rehab
Family wishes for home PT/OT, CM informed
#Parkinson disease
Continue Sinemet
#Dementia
Continue Aricept
#Mood disorder
Continue Seroquel, mirtazapine
DVT prophylaxis�subcu Lovenox
Full code
Physical Exam
General: No acute distress
HEENT: Normocephalic, Atraumatic, EOMI, MMM
Respiratory: Clear to Auscultation bilaterally
Cardiac: Normal S1/S2, Regular Rate and Rhythm
GI: Soft, Nontender, Nondistended, Normal Bowel Sounds
Extremities: No Clubbing, Cyanosis, or Edema
Neuro:
Severe right hand weakness noted
Psych: Calm, Cooperative
Anticipated Discharge: Today
Subjective/Interval History
-
Date of Service: July 13, 2025
Patient reports slight improvement in his right hand function. 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 Denies chest pain, denies shortness of breath. No fever, no vomiting
Objective Data
-
Labs:
Laboratory Results
07/13/25
05:53
PT 15.3 H
INR 1.19
APTT 31.4
Vital Signs:
Vital Signs
Temp Pulse Resp BP Pulse Ox
97.5 F 47 16 152/73 98
07/13/25 07:07 07/13/25 07:07 07/13/25 07:07 07/13/25 07:07 07/13/25 07:07
I&O
07/12/25 07/13/25 07/14/25
06:59 06:59 06:59
Intake Total 480 / 480
Output Total 200 / 200
Balance 280 / 280
[2025-07-14 11:37] VITALS: BP 170/81
--- NOTE | 2025-07-14 11:52 | W.DCSUMMARY ---
Discharge Summary
Discharge Data
Date of Admission: 07/12/25
Date of Discharge: 07/14/25
-
Pending Results: No
Hospital Course
Discharge diagnosis:
Acute right wrist drop
Right radial nerve palsy
Nocturnal hypoxia suspicious for sleep apnea
Parkinson's disease
Cognitive impairment
Mood disorder
Consults: Neurology
Brain MRI:
No acute intracranial abnormality.
C-spine MRI:
Straightening of the cervical lordosis. The vertebral body heights are maintained. No suspicious marrow lesion. Chronic multilevel degenerative disc space narrowing, most severe at C5-C6. Fatty degenerative endplate signal at C5-C6 (Modic type II).
Schmorl's node at the inferior endplate of C2. Chronic multilevel disc desiccation and endplate osteophytes. Minimal degenerative anterolisthesis of C3 on C4.
The cervical spinal cord is normal in signal and morphology.
Evaluation of the individual levels demonstrates:
At C2/C3: A disc bulge causes mild spinal canal stenosis. No neuroforaminal stenosis.
At C3/C4: A disc bulge, uncovertebral arthrosis, and facet arthrosis contribute to moderate left and mild right neuroforaminal stenosis. No spinal canal stenosis.
At C4/C5: A disc bulge, uncovertebral arthrosis, and facet arthrosis contribute to mild right neuroforaminal stenosis. No spinal canal stenosis or left neuroforaminal stenosis.
At C5/C6: A disc bulge causes minimal spinal canal stenosis. Uncovertebral arthrosis and facet arthrosis contribute to moderate right and mild left neuroforaminal stenosis.
At C6/C7: A disc bulge causes minimal spinal canal stenosis. Uncovertebral arthrosis and facet arthrosis contribute to moderate left neuroforaminal stenosis. No right neuroforaminal stenosis.
At C7/T1: No disc herniation. No spinal canal or neuroforaminal stenosis.
Hospital course:
75-year-old male with a past medical history of cognitive impairment, Parkinson's disease, and mood disorder, presented with acute onset of right wrist drop. Patient was seen in conjunction with neurology. Brain MRI ruled out acute stroke.
C-spine MRI shows degenerative disc disease as above. Neurology suspects patient has right radial nerve palsy, and recommends outpatient nerve conduction study/EMG. He was seen in conjunction with PT/OT, who recommends home therapy.
During his hospitalization, patient was noted to have nocturnal hypoxia, suspicious for obstructive sleep apnea. Discussed these findings with patient and his daughter, recommend he gets an outpatient sleep study.
Patient is medically stable and cleared by neurology for discharge. He needs to follow-up with his PCP in 1 week, his usual neurologist in the office in 2-3 weeks, and pulmonology in the office in 2-3 weeks for sleep study.
Disposition: Home with home care
Discharge planning: Required 36 minutes
Discharge Plan
-
Patient Disposition: Home with Home Care
Discharge Diagnosis/Procedures: Right radial nerve palsy
Condition: Good
Diet: Regular
Activity: As tolerated
Other Services: VN, PT and OT
Activity Restrictions/Additional Instructions:
You had a brain MRI, that ruled out acute stroke.
You were seen by neurology, and diagnosed with right radial nerve palsy.
Neurology recommends outpatient nerve conduction study/EMG with your usual neurologist.
Your oxygen levels were low at night, which is suspicious for obstructive sleep apnea.
Recommend you get an outpatient sleep study, this can be done with your family doctor or pulmonology.
Please follow-up with your family doctor and your usual neurologist in 1-2 weeks.
Referrals:
Marianna Winters DO [Active, Pulmonary Medicine] - in two to three weeks
Misha Riddle MD [Family Provider, Family Practice] - in one to two weeks
Prescriptions:
Continued
carbidopa-levodopa [Sinemet] 25-100 mg Tablet
2 tab PO TID
carbidopa-levodopa 25-100 mg Tablet Extended Release
1 tab PO HS
Rx Instructions:
25/100 PO HS
donepezil 10 mg Tablet
10 mg PO DAILY
Centrum Silver Men [id number] mcg Tablet
1 tab PO DAILY
ibuprofen-acetaminophen [Advil Dual Action] 125-250 mg Tablet
2 tab PO DAILYPRN PRN (Reason: mild pain)
quetiapine [Seroquel] 25 mg Tablet
50 mg PO HS
mirtazapine 7.5 mg Tablet
15 mg PO HS
Discharge Orders:
Discharge Patient (As Directed); Ordered 07/14/25
Ordered By: Mg Benavides
Discharge Date and Time
Discharge Date/Time: 07/14/25 14:13
Print Language: MAURITANIAN
--- NOTE | 2025-07-14 12:27 | CM ---
CM reviewed chart. DC order noted. S/w pts . She is requesting home care.
DC to home with SN/PT/OT- referral sent via [employer]
[facility] order is in place.
Family to transport at dc.
== END 2025-07-14 14:13 | disposition home health service (06) ==
LOC: 2 NORTH 22:48
PROVIDERS: Emergency Medicine; Nurse Practitioner Family; ADMITTING PHYSICIAN Hospitalist; ATTENDING PHYSICIAN Family Medicine; CONSULT PHYSICIAN Student in an Organized Health Care Education/Training Program; EMERGENCY PHYSICIAN Emergency Medicine; FAMILY PHYSICIAN Family Medicine
DX: M21.331 Wrist drop, right wrist (principal); G20.A1 Parkinson's disease without dyskinesia, without mention of fluctuations; F17.200 Nicotine dependence, unspecified, uncomplicated; F32.A Depression, unspecified; F02.83 Dementia in other diseases classified elsewhere, unspecified severity, with mood disturbance; F02.84 Dementia in other diseases classified elsewhere, unspecified severity, with anxiety; Z79.899 Other long term (current) drug therapy; Z79.82 Long term (current) use of aspirin; G56.31 Lesion of radial nerve, right upper limb; G47.34 Idiopathic sleep related nonobstructive alveolar hypoventilation; R41.89 Other symptoms and signs involving cognitive functions and awareness
CPT/HCPCS: 70496; 70498; 70551; 72141; 80053; 80061; 83036; 84484; 85025; 85610; 85652; 85730; 86850; 86870; 86900; 86901; 93005; 97163; 97167; 97530; 99285; G0378; Q9967